=== PATIENT | male | born 1975 | race American Indian/Alaskan Native ===

== ENCOUNTER 2018-01-06 11:24 | Emergency (ER) | payer SELFPAY ==
[2018-01-06] MEDS ORDERED: CATAPRES ONE (12:13)
--- NOTE | 2018-01-06 12:24 | XRay Report ---
CHEST XRAY, 2 VIEWS: History: Shortness of breath. Findings: There is mild cardiomegaly. Pulmonary vessels are within normal limits. The lungs are clear and fully expanded. No infiltrate, pleural effusion or pneumothorax. Normal thoracic cage. IMPRESSION: Cardiomegaly.
[2018-01-06] MEDS ORDERED: CATAPRES PO ONE (12:26)
[2018-01-06 12:34] LABS: Basophils % (Auto) 0.3 % (0.0-1.8); Eosinophils # (Auto) 0.1 K/mm3 (0.0-0.4); Eosinophils % (Auto) 1.7 % (0.0-4.3); Hematocrit 50.5 % (35.5-45.6); Hemoglobin 15.9 gm/dl (11.8-15.2); Lymphocytes # (Auto) 0.6 K/mm3 (1.2-5.4); Lymphocytes % (Auto) 8.6 % (13.4-35.0); Mean Corpuscular HGB Conc 32 % (32-34); Mean Corpuscular Volume 81 fl (84-94); Monocytes # (Auto) 0.8 K/mm3 (0.0-0.8); Monocytes % (Auto) 10.1 % (0.0-7.3); Platelet Count 214 K/mm3 (140-440); Red Blood Count 6.22 M/mm3 (3.65-5.03); Red Cell Distribution Width 15.6 % (13.2-15.2)
[2018-01-06 12:35] LABS: Mean Corpuscular Hemoglobin 26 pg (28-32)
[2018-01-06 13:23] LABS: BUN/Creatinine Ratio 11; Blood Urea Nitrogen 11 mg/dL (9-20); Calcium 8.9 mg/dL (8.4-10.2); Hemolysis Index 6
[2018-01-06] MEDS ORDERED: APRESOLINE IV ONE (14:02)
[2018-01-06] MEDS ORDERED: LASIX IV ONE (14:03)
[2018-01-06] MEDS ORDERED: BABY ASPIRIN PO ONE (14:06)
--- NOTE | 2018-01-06 14:06 | Emergency Department Report ---
ED General Adult HPI - General Chief complaint: Dyspnea/Respdistress Stated complaint: SWOLLEN LEG Time Seen by Provider: 01/06/18 13:55 Source: patient, RN notes reviewed Mode of arrival: Ambulatory Limitations: No Limitations - History of Present Illness Initial comments: This is a 42-year-old male, who is known to this provider previously. He does not have a local primary care doctor. He denies chronic medical conditions. Patient presents to the ER with complaint of bilateral lower extremity swelling , unintentional weight gain, decreased exercise tolerance and sleepiness for the past 2-3 months. He also complains of left-sided chest wall pain that does not radiate to the back, arms or neck. There is no vomiting or diaphoresis. No recent surgeries, no recent trips, no recent hospitalizations. He also endorses on review of systems that he sleeps poorly, snores quite a bit, and gets very sleepy during the day, and feels like each night sleep is insufficient for his daily activities. No recent aspirin use or cocaine use. -: Gradual Location: chest, left, right, lower extremity Radiation: non-radiation Severity scale (0 -10): 5 Quality: aching Consistency: constant (lower extremity swelling is constant.), intermittent ( chest pain is intermittent) Improves with: none Worsens with: none Associated Symptoms: chest pain, shortness of breath - Related Data Allergies Allergy/AdvReac Type Severity Reaction Status Date / Time No Known Allergies Allergy Verified 01/06/18 11:55 ED Review of Systems ROS: Stated complaint: SWOLLEN LEG Other details as noted in HPI Constitutional: malaise. denies: fever Eyes: denies: eye discharge ENT: denies: epistaxis Respiratory: shortness of breath Cardiovascular: chest pain, edema Gastrointestinal: abdominal pain Genitourinary: denies: dysuria Musculoskeletal: arthralgia, myalgia Skin: denies: lesions Neurological: weakness ED Past Medical Hx - Past Medical History Hx Hypertension: Yes - Surgical History Past Surgical History?: No - Social History Smoking Status: Former Smoker Substance Use Type: None ED Physical Exam - General Limitations: No Limitations General appearance: obese - Head Head exam: Present: atraumatic, normocephalic - Eye Eye exam: Present: normal appearance, EOMI. Absent: nystagmus - ENT ENT exam: Present: normal exam, normal orophraynx, mucous membranes moist, normal external ear exam - Neck Neck exam: Present: normal inspection, full ROM - Respiratory Respiratory exam: Present: decreased breath sounds. Absent: respiratory distress - Cardiovascular Cardiovascular Exam: Present: regular rate, normal rhythm, normal heart sounds. Absent: bradycardia, tachycardia, irregular rhythm, systolic murmur, diastolic murmur, rubs, gallop - GI/Abdominal GI/Abdominal exam: Present: soft, normal bowel sounds, other (there is abdominal wall anasarca noted). Absent: distended, tenderness, guarding, rebound, rigid, pulsatile mass - Rectal Rectal exam: Present: deferred - Extremities Exam Extremities exam: Present: normal inspection, full ROM, pedal edema (3+ pitting edema in the bilateral lower extremity), other (2+ pulses noted in the bilateral upper, lower extremities. Compartments soft. No long bony tenderness. The pelvis is stable.). Absent: tenderness, normal capillary refill, calf tenderness - Back Exam Back exam: Present: normal inspection, full ROM. Absent: tenderness, CVA tenderness (R), paraspinal tenderness, vertebral tenderness - Neurological Exam Neurological exam: Present: alert, oriented X3, CN II-XII intact, normal gait, other (Extraocular movements intact. Tongue midline. No facial droop. Facial sensation intact to light touch in the V1, V2, V3 distribution bilaterally. 5 and 5 strength in 4 extremities.. Sensation is intact to light touch in 4 extremities.). Absent: motor sensory deficit - Psychiatric Psychiatric exam: Present: normal affect, normal mood - Skin Skin exam: Present: warm, dry, intact, normal color. Absent: rash ED Course Vital Signs 01/06/18 01/06/18 11:50 13:42 Temperature 98.2 F 98.8 F Pulse Rate 104 H 90 Respiratory 20 22 Rate Blood Pressure 231/148 211/133 O2 Sat by Pulse 93 87 Oximetry ED Medical Decision Making - Lab Data Result diagrams: 01/06/18 12:04 01/06/18 12:04 Vital Signs 01/06/18 01/06/18 11:50 13:42 Temperature 98.2 F 98.8 F Pulse Rate 104 H 90 Respiratory 20 22 Rate Blood Pressure 231/148 211/133 O2 Sat by Pulse 93 87 Oximetry Temp Pulse Resp BP Pulse Ox 98.8 F 90 22 211/133 87 01/06/18 13:42 01/06/18 13:42 01/06/18 13:42 01/06/18 13:42 01/06/18 13:42 Lab Results 01/06/18 01/06/18 Range/Units 12:04 12:04 WBC 7.4 (4.5-11.0) K/mm3 RBC 6.22 H (3.65-5.03) M/mm3 Hgb 15.9 H (11.8-15.2) gm/dl Hct 50.5 H (35.5-45.6) % MCV 81 L (84-94) fl MCH 26 L (28-32) pg MCHC 32 (32-34) % RDW 15.6 H (13.2-15.2) % Plt Count 214 (140-440) K/mm3 Lymph % (Auto) 8.6 L (13.4-35.0) % [place] % (Auto) 10.1 H (0.0-7.3) % Eos % (Auto) 1.7 (0.0-4.3) % Baso % (Auto) 0.3 (0.0-1.8) % Lymph # 0.6 L (1.2-5.4) K/mm3 [place] # 0.8 (0.0-0.8) K/mm3 Eos # 0.1 (0.0-0.4) K/mm3 Baso # 0.0 (0.0-0.1) K/mm3 Seg Neutrophils % 79.3 H (40.0-70.0) % Seg Neutrophils # 5.9 (1.8-7.7) K/mm3 Sodium 141 (137-145) mmol/L Potassium 4.7 (3.6-5.0) mmol/L Chloride 97.9 L (98-107) mmol/L Carbon Dioxide 34 H (22-30) mmol/L Anion Gap 14 mmol/L BUN 11 (9-20) mg/dL Creatinine 1.0 (0.8-1.5) mg/dL Estimated GFR > 60 ml/min BUN/Creatinine Ratio 11 % Glucose 81 (75-100) mg/dL Calcium 8.9 (8.4-10.2) mg/dL Troponin T < 0.010 (0.00-0.029) ng/mL - EKG Data When compared to previous EKG there are: previous EKG unavailable 01/06/18 14:15 Normal sinus, 95 bpm, normal axis, QTC prolonged, poor R progression, low voltage in the anteroseptal leads. Not a STEMI. - Radiology Data Radiology results: report reviewed, image reviewed X-ray of the chest shows cardiomegaly. LIVE [facility] LUCIE CHRISTENSEN : 1975 [id number] 01/06/18 14:55 - Radiology Dept. [facility] by [facility]: [id number] : 1975 Patient Age: 42 BLE VENOUS DUPLEX COMPLETED. VAS LAB PRELIMINARY REPORT; NO EVIDENCE OF DVT/SVT NOTED IN VESSELS/SEGMENTS EXAMINED, BLE. DIFFICULT TO IMAGE BLE 3/4 THIGH SFV'S AND PX CLAF VESSELS DUE TO HABITUS/ SWELLING. PHYSICIANS REPORT TO FOLLOW...(RSK ) Initialized on 01/06/18 14:55 - END OF NOTE - Medical Decision Making Differential diagnosis, including without limited to: Right-sided heart failure , pulmonary hypertension, obstructive sleep apnea, fluid overload, acute coronary syndrome Assessment and plan: 42-year-old morbidly obese male who presents with obvious signs of right-sided heart failure. He most likely has obstructive sleep apnea , which is likely in turn causing pulmonary hypertension and right ventricular dysfunction. A lower extremity DVT studies pending, however he denies pulmonary embolus, DVT risk factors and is low risk by well's criteria. He is saturating at 93-95% on room air. Lasix, hydralazine, aspirin ordered. Hospital physician, Dr. Jones accepts the patient to the medical service for diuresis, blood pressure control, and cardiac risk stratification. Explained to the patient this plan of care and he is amenable to hospital admission. Explained to the patient that he would also likely need to follow up as an outpatient for sleep study. He verbalized understanding to this. Critical care attestation.: If time is entered above; I have spent that time in minutes in the direct care of this critically ill patient, excluding procedure time. ED Disposition Clinical Impression: Diastolic heart failure, Fluid overload, Hypertensive urgency Disposition: OP ADMIT IP TO THIS HOSP Is pt being admited?: Yes Does the pt Need Aspirin: Yes Condition: Good Referrals: PRIMARY CARE, [Primary Care Provider] - 3-5 Days
[2018-01-06 14:21] LABS: INR 0.91 (0.87-1.13)
--- NOTE | 2018-01-06 16:22 | History and Physical Report ---
Medications and Allergies Allergies Allergy/AdvReac Type Severity Reaction Status Date / Time No Known Allergies Allergy Verified 01/06/18 11:55 Exam - Constitutional Vitals: Temp Pulse Resp BP Pulse Ox 98.8 F 80 22 185/104 87 01/06/18 13:42 01/06/18 15:30 01/06/18 13:42 01/06/18 15:30 01/06/18 13:42 Results - Labs CBC & Chem 7: 01/06/18 12:04 01/06/18 12:04 Labs: Abnormal lab results 01/06/18 01/06/18 01/06/18 Range/Units 12:04 12:04 12:04 RBC 6.22 H (3.65-5.03) M/mm3 Hgb 15.9 H (11.8-15.2) gm/dl Hct 50.5 H (35.5-45.6) % MCV 81 L (84-94) fl MCH 26 L (28-32) pg RDW 15.6 H (13.2-15.2) % Lymph % (Auto) 8.6 L (13.4-35.0) % [place] % (Auto) 10.1 H (0.0-7.3) % Lymph # 0.6 L (1.2-5.4) K/mm3 Seg Neutrophils % 79.3 H (40.0-70.0) % Chloride 97.9 L (98-107) mmol/L Carbon Dioxide 34 H (22-30) mmol/L Total Creatine Kinase 173 H (55-170) units/L NT-Pro-B Natriuret Pep 1392 H (0-450) pg/mL
[2018-01-06] MEDS ORDERED: ZESTRIL PO ONE (17:20)
[2018-01-06] MEDS ORDERED: LOPRESSOR PO ONE (17:20)
[2018-01-06] MEDS ORDERED: LOPRESSOR ONE (17:36)
[2018-01-06 21:23] VITALS: BP 156/103
== END 2018-01-06 21:40 | disposition admitted as inpatient to this hospital (09) ==
LOC: ED 11:24
DX: I16.0 Hypertensive urgency (principal); E87.70 Fluid overload, unspecified; I11.0 Hypertensive heart disease with heart failure; I50.30 Unspecified diastolic (congestive) heart failure; E66.01 Morbid (severe) obesity due to excess calories; Z87.891 Personal history of nicotine dependence
CPT/HCPCS: 36415; 71046; 80048; 82550; 83735; 83880; 84484; 85025; 85379; 85610; 93005; 93010; 93970; 96374; 96375; 99284; J0360; J1940

== ENCOUNTER 2018-02-05 12:14 | Inpatient (IN) | payer OTHER ==
--- NOTE | 2018-02-05 14:10 | Emergency Department Report ---
ED Chest Pain HPI - General Chief Complaint: Chest Pain Stated Complaint: SWOLLEN LEG/SOB Time Seen by Provider: 02/05/18 14:09 Source: patient Mode of arrival: Ambulatory Limitations: No Limitations - History of Present Illness Initial Comments: Patient said he has been swelling and gaining weight recently. He also c/o chest pain and bilateral leg swelling. MD Complaint: chest pain -: Gradual Onset: during rest Pain Location: substernal Pain Radiation: none Severity: moderate Severity scale (0 -10): 4 Quality: tightness, heaviness Consistency: constant Improves With: nothing Worsens With: nothing re: denies: nausea, vomting Other Symptoms: denies: fever, syncope Treatments Prior to Arrival: none Aspirin use within the Past 7 Days: (0) No - Related Data On Oral Contraceptives: No Previous Rx's Medication Instructions Recorded Last Taken Type Lisinopril/Hydrochlorothiazide 1 tab PO QDAY #30 tab 01/06/18 02/05/18 Rx [Zestoretic 20-12.5 mg] Metoprolol [Lopressor TAB] 25 mg PO BID #60 tablet 01/06/18 02/05/18 Rx Allergies Allergy/AdvReac Type Severity Reaction Status Date / Time No Known Allergies Allergy Verified 02/05/18 12:34 Heart Score - HEART Score History: Moderately suspicious EKG: Non-specific Age: < 45 Risk factors: 1-2 risk factors Troponin: < normal limit HEART Score: 3 - Critical Actions Critical Actions: 0-3 pts:0.9-1.7%risk of adverse cardiac event.Candidate for discharge ED Review of Systems ROS: Stated complaint: SWOLLEN LEG/SOB Other details as noted in HPI Comment: All other systems reviewed and negative Constitutional: denies: chills, fever Eyes: denies: eye pain, eye discharge ENT: denies: ear pain, throat pain Respiratory: orthopnea, shortness of breath, SOB with exertion, SOB at rest Cardiovascular: chest pain, palpitations, dyspnea on exertion, orthopnea, edema Endocrine: no symptoms reported Gastrointestinal: denies: abdominal pain, nausea, vomiting Genitourinary: denies: urgency, dysuria, frequency Musculoskeletal: denies: back pain, joint swelling Skin: denies: rash, lesions Neurological: denies: headache, weakness, numbness, paresthesias Psychiatric: denies: anxiety, depression Hematological/Lymphatic: denies: easy bleeding, easy bruising ED Past Medical Hx - Past Medical History Hx Hypertension: Yes - Social History Smoking Status: Never Smoker Substance Use Type: None - Medications Home Medications: Home Medications Medication Instructions Recorded Confirmed Last Taken Type Lisinopril/Hydrochlorothiazide 1 tab PO QDAY #30 tab 01/06/18 02/05/18 02/05/18 Rx [Zestoretic 20-12.5 mg] Metoprolol [Lopressor TAB] 25 mg PO BID #60 tablet 01/06/18 02/05/18 02/05/18 Rx ED Physical Exam - General Limitations: No Limitations General appearance: alert, in no apparent distress, obese - Head Head exam: Present: atraumatic, normocephalic, normal inspection - Eye Eye exam: Present: normal appearance, PERRL, EOMI Pupils: Present: normal accommodation - ENT ENT exam: Present: normal exam, normal orophraynx, mucous membranes moist - Neck Neck exam: Present: normal inspection, full ROM. Absent: tenderness - Respiratory Respiratory exam: Present: respiratory distress, rales, rhonchi. Absent: wheezes, stridor - Cardiovascular Cardiovascular Exam: Present: regular rate, normal rhythm, normal heart sounds - GI/Abdominal GI/Abdominal exam: Present: soft, distended, normal bowel sounds. Absent: tenderness, guarding, rebound, rigid - Extremities Exam Extremities exam: Present: full ROM, normal capillary refill, pedal edema, calf tenderness, other (Erythema) - Back Exam Back exam: Present: normal inspection, full ROM. Absent: tenderness - Neurological Exam Neurological exam: Present: alert, oriented X3, CN II-XII intact - Psychiatric Psychiatric exam: Present: normal affect, normal mood - Skin Skin exam: Present: warm, dry, intact, erythema ED Course Vital Signs 02/05/18 02/05/18 02/05/18 12:30 12:34 13:20 Temperature 98.4 F Pulse Rate 82 Respiratory 15 Rate Blood Pressure 212/129 Blood Pressure [Right] O2 Sat by Pulse 91 88 Oximetry 02/05/18 02/05/18 02/05/18 13:30 13:45 14:01 Temperature 98.0 F Pulse Rate 76 96 H 97 H Respiratory 24 23 30 H Rate Blood Pressure 194/127 194/127 221/136 Blood Pressure 178/114 [Right] O2 Sat by Pulse 93 76 L 73 L Oximetry 02/05/18 02/05/18 02/05/18 14:15 14:31 14:45 Temperature Pulse Rate 94 H 79 92 H Respiratory 22 28 H 19 Rate Blood Pressure 216/144 221/133 198/126 Blood Pressure [Right] O2 Sat by Pulse 73 L 85 89 Oximetry 02/05/18 02/05/18 02/05/18 15:01 15:15 15:31 Temperature Pulse Rate 86 94 H 88 Respiratory 32 H 23 16 Rate Blood Pressure 178/121 251/165 208/123 Blood Pressure [Right] O2 Sat by Pulse 75 L 73 L 90 Oximetry - Reevaluation(s) Reevaluation #1: 02/05/18 15:59 I discussed patient care with the hospitalist rn clinical documentation Dr Estes. He will admit patient to the hospital for further evaluation and mangement. DAVID score - David Score Age > 65: (0) No Aspirin use within the Past 7 Days: (0) No 3 or more CAD Risk Factors: (0) No 2 or more Angina events in past 24 hrs: (0) No Known CAD with more than 50% Stenosis: (0) No Elevated Cardiac Markers: (0) No ST Deviation Greater than 0.5mm: (0) No DAVID Score: 0 ED Medical Decision Making - Lab Data Result diagrams: 02/05/18 14:41 02/05/18 14:41 - EKG Data -: EKG Interpreted by Me EKG shows normal: sinus rhythm Rate: normal (83) - EKG Data When compared to previous EKG there are: previous EKG unavailable Interpretation: normal EKG 02/05/18 15:13 No STEMI. - Radiology Data Radiology results: report reviewed, image reviewed - Medical Decision Making Chest Pain. CHF. Critical Care Time: Yes Critical care time in (mins) excluding proc time.: 45 Critical care attestation.: If time is entered above; I have spent that time in minutes in the direct care of this critically ill patient, excluding procedure time. ED Disposition Clinical Impression: Obesities, morbid, Hypertensive crisis, Cellulitis of both lower extremities Chest pain Qualifiers: Chest pain type: unspecified Qualified Code(s): R07.9 - Chest pain, unspecified CHF (congestive heart failure) Qualifiers: Heart failure type: unspecified Heart failure chronicity: unspecified Qualified Code(s): I50.9 - Heart failure, unspecified Hypertensive CHF Qualifiers: Heart failure type: unspecified Qualified Code(s): I11.0 - Hypertensive heart disease with heart failure Disposition: OP ADMIT IP TO THIS HOSP Is pt being admited?: Yes Does the pt Need Aspirin: Yes Condition: Fair Instructions: Chest Pain (ED) Referrals: PRIMARY CARE, [Primary Care Provider] - 3-5 Days Time of Disposition: 16:00
[2018-02-05 15:02] LABS: Basophils % (Auto) 0.5 % (0.0-1.8); Eosinophils # (Auto) 0.6 K/mm3 (0.0-0.4); Eosinophils % (Auto) 6.2 % (0.0-4.3); Lymphocytes # (Auto) 0.7 K/mm3 (1.2-5.4); Lymphocytes % (Auto) 7.4 % (13.4-35.0); Mean Corpuscular HGB Conc 31 % (32-34); Mean Corpuscular Volume 80 fl (84-94); Monocytes # (Auto) 0.9 K/mm3 (0.0-0.8); Monocytes % (Auto) 10.2 % (0.0-7.3); Platelet Count 211 K/mm3 (140-440); Red Blood Count 6.45 M/mm3 (3.65-5.03); Red Cell Distribution Width 15.9 % (13.2-15.2)
[2018-02-05 15:03] LABS: Hematocrit 51.9 % (35.5-45.6); Hemoglobin 16.1 gm/dl (11.8-15.2)
[2018-02-05 15:04] LABS: Mean Corpuscular Hemoglobin 25 pg (28-32)
[2018-02-05 15:19] LABS: Partial Thromboplastin Time 29.4 Sec. (24.2-36.6)
[2018-02-05] MEDS ORDERED: APRESOLINE IV ONE (15:19)
[2018-02-05 15:24] LABS: Alanine Aminotransferase 25 units/L (7-56); Albumin 3.5 g/dL (3.9-5); BUN/Creatinine Ratio 12; Blood Urea Nitrogen 11 mg/dL (9-20); Hemolysis Index 12
[2018-02-05 15:53] LABS: INR 1.02 (0.87-1.13)
[2018-02-05] MEDS ORDERED: LASIX 60 MG in NACL 0.9% 50 ML IV ONE (16:19)
[2018-02-05 16:58] LABS: Lipase 26 units/L (13-60)
[2018-02-05] MEDS ORDERED: VANCOMYCIN/NS 1 GM/250 ML 1 GM/250 ML BAG IV SCH (17:00)
--- NOTE | 2018-02-05 17:21 | XRay Report ---
FINAL REPORT EXAM: XR CHEST 1V AP HISTORY: Shortness of breath, chest pain TECHNIQUE: AP portable view of the chest PRIORS: None. FINDINGS: Lines, tubes, and devices: N/A Lungs and pleura: Trachea is normal in position. Perihilar vascular congestion is noted suggesting CHF. Probable small left pleural effusion is seen. There is overlying soft tissue haze in the left base. Cardiomediastinal silhouette: The heart is mildly enlarged. Other: Bony structures are intact. IMPRESSION: Cardiomegaly with perihilar vascular congestion suggesting volume overload or CHF. There is likely a small left effusion.
[2018-02-05 17:54] LABS: Amphetamine Screen,Urine PRESUMPTIVE NEGATIVE; Benzodiazepines Screen,Urine PRESUMPTIVE NEGATIVE; Bilirubin,Urine NEG (Negative); Blood,Urine NEG (Negative); Cannabinoid Screen,Urine PRESUMPTIVE NEGATIVE; Cocaine Screen,Urine PRESUMPTIVE NEGATIVE; Color,Urine Yellow (Yellow); Methadone Screen,Urine PRESUMPTIVE NEGATIVE; Mucus,Urine FEW /HPF; Opiate Screen,Urine PRESUMPTIVE NEGATIVE; Protein,Urine <15 mg/dL mg/dL (Negative)
[2018-02-05] MEDS ORDERED: ZOSYN/NS 4.5GM/100ML 4.5 GM/100 ML VIAL IV SCH (18:00)
[2018-02-05] MEDS ORDERED: VANCOMYCIN 2,000 MG in NACL 0.9% 500 ML 500 ML IV ONE (18:00)
[2018-02-05] MEDS ORDERED: TYLENOL PO PRN (20:41)
[2018-02-05] MEDS ORDERED: NORCO 5/325 PO PRN (20:41)
[2018-02-05] MEDS ORDERED: MORPHINE IV PRN (20:41)
[2018-02-05] MEDS ORDERED: ZOFRAN IV PRN (20:41)
[2018-02-05] MEDS ORDERED: SODIUM CHLORIDE FLUSH SYRINGE 10 ML IV PRN (20:41)
--- NOTE | 2018-02-05 20:41 | History and Physical Report ---
History of Present Illness Date of examination: 02/05/18 Date of admission: 02/05/18 Chief complaint: CC Increasing SOB and weight gain -1 month History of present illness: History of Present Illness: 42 y/o Black male with history of HTn has been getting progressively SOB and Weight gain for 1 month Also non specific Chest pain.Orthopnea present.patient has class IV NYHA symptoms.No fever or chills.Exacerbated by minimal exercise and relieved by rest. Initial Comments: Past Medical History Hx Hypertension: Yes Social History Smoking Status: Never Smoker Substance Use Type: None Medications Home Medications: Home Medications Medication Instructions Recorded Confirmed Last Taken Type Lisinopril/Hydrochlorothiazide 1 tab PO QDAY #30 tab 01/06/18 02/05/18 02/05/18 Rx [Zestoretic 20-12.5 mg] Metoprolol [Lopressor TAB] 25 mg PO BID #60 tablet 01/06/18 02/05/18 02/05/18 Rx Review of Systems ROS: Stated complaint: SWOLLEN LEG/SOB Other details as noted in HPI Comment: All other systems reviewed and negative Constitutional: denies: chills, fever Eyes: denies: eye pain, eye discharge ENT: denies: ear pain, throat pain Respiratory: orthopnea, shortness of breath, SOB with exertion, SOB at rest Cardiovascular: chest pain, palpitations, dyspnea on exertion, orthopnea, edema Endocrine: no symptoms reported Gastrointestinal: denies: abdominal pain, nausea, vomiting Genitourinary: denies: urgency, dysuria, frequency Musculoskeletal: denies: back pain, joint swelling Skin: denies: rash, lesions Neurological: denies: headache, weakness, numbness, paresthesias Psychiatric: denies: anxiety, depression Hematological/Lymphatic: denies: easy bleeding, easy bruising Medications and Allergies Allergies Allergy/AdvReac Type Severity Reaction Status Date / Time No Known Allergies Allergy Verified 02/05/18 12:34 Home Medications Medication Instructions Recorded Confirmed Last Taken Type Lisinopril/Hydrochlorothiazide 1 tab PO QDAY #30 tab 01/06/18 02/05/18 02/05/18 Rx [Zestoretic 20-12.5 mg] Metoprolol [Lopressor TAB] 25 mg PO BID #60 tablet 01/06/18 02/05/18 02/05/18 Rx Active Meds: Active Medications Piperacillin Sod/Tazobactam Sod (Zosyn/Ns 4.5gm/100ml) 4.5 gm in 100 mls @ 200 mls/hr IV ONCE LULI Last Infusion: 02/05/18 18:55 Dose: Infused Exam - Constitutional Vitals: Temp Pulse Resp BP Pulse Ox 98.0 F 85 19 182/116 92 02/05/18 16:30 02/05/18 18:30 02/05/18 18:30 02/05/18 18:30 02/05/18 18:30 General appearance: Present: mild distress, well-nourished - EENT Eyes: Present: PERRL ENT: hearing intact, clear oral mucosa - Neck Neck: Present: supple, normal ROM - Respiratory Respiratory effort: normal Respiratory: bilateral: rales, rhonchi - Cardiovascular Heart rate: 98 Rhythm: regular Heart Sounds: Present: S1 & S2. Absent: rub, click - Extremities Extremities: pulses symmetrical, No edema, abnormal Extremity abnormal: edema (3 plus) Peripheral Pulses: within normal limits - Abdominal General gastrointestinal: Present: soft, non-tender, non-distended, normal bowel sounds Male genitourinary: Present: normal - Rectal Rectal Exam: deferred - Integumentary Integumentary: Present: clear, warm, dry - Musculoskeletal Musculoskeletal: gait normal, strength equal bilaterally - Psychiatric Psychiatric: appropriate mood/affect, intact judgment & insight - Neurologic Neurologic: CNII-XII intact, moves all extremities - Allied Health Allied health notes reviewed: nursing, case management Results - Labs CBC & Chem 7: 02/06/18 04:58 02/06/18 04:58 Labs: Laboratory Last Values WBC 9.2 K/mm3 (4.5-11.0) 02/05/18 14:41 RBC 6.45 M/mm3 (3.65-5.03) H 02/05/18 14:41 Hgb 16.1 gm/dl (11.8-15.2) H 02/05/18 14:41 Hct 51.9 % (35.5-45.6) H 02/05/18 14:41 MCV 80 fl (84-94) L 02/05/18 14:41 MCH 25 pg (28-32) L 02/05/18 14:41 MCHC 31 % (32-34) L 02/05/18 14:41 RDW 15.9 % (13.2-15.2) H 02/05/18 14:41 Plt Count 211 K/mm3 (140-440) 02/05/18 14:41 Lymph % (Auto) 7.4 % (13.4-35.0) L 02/05/18 14:41 [place] % (Auto) 10.2 % (0.0-7.3) H 02/05/18 14:41 Eos % (Auto) 6.2 % (0.0-4.3) H 02/05/18 14:41 Baso % (Auto) 0.5 % (0.0-1.8) 02/05/18 14:41 Lymph # 0.7 K/mm3 (1.2-5.4) L 02/05/18 14:41 [place] # 0.9 K/mm3 (0.0-0.8) H 02/05/18 14:41 Eos # 0.6 K/mm3 (0.0-0.4) H 02/05/18 14:41 Baso # 0.0 K/mm3 (0.0-0.1) 02/05/18 14:41 Seg Neutrophils % 75.7 % (40.0-70.0) H 02/05/18 14:41 Seg Neutrophils # 7.0 K/mm3 (1.8-7.7) 02/05/18 14:41 PT 13.9 Sec. (12.2-14.9) 02/05/18 14:41 INR 1.02 (0.87-1.13) 02/05/18 14:41 APTT 29.4 Sec. (24.2-36.6) 02/05/18 14:41 D-Dimer 883.26 ng/mlDDU (0-234) H 02/05/18 14:41 Sodium 142 mmol/L (137-145) 02/05/18 14:41 Potassium 4.6 mmol/L (3.6-5.0) 02/05/18 14:41 Chloride 97.6 mmol/L (98-107) L 02/05/18 14:41 Carbon Dioxide 37 mmol/L (22-30) H 02/05/18 14:41 Anion Gap 12 mmol/L 02/05/18 14:41 BUN 11 mg/dL (9-20) 02/05/18 14:41 Creatinine 0.9 mg/dL (0.8-1.5) 02/05/18 14:41 Estimated GFR > 60 ml/min 02/05/18 14:41 BUN/Creatinine Ratio 12 % 02/05/18 14:41 Glucose 86 mg/dL (75-100) 02/05/18 14:41 Calcium 9.0 mg/dL (8.4-10.2) 02/05/18 14:41 Total Bilirubin 0.60 mg/dL (0.1-1.2) 02/05/18 14:41 AST 27 units/L (5-40) 02/05/18 14:41 ALT 25 units/L (7-56) 02/05/18 14:41 Alkaline Phosphatase 107 units/L (35-129) 02/05/18 14:41 Troponin T < 0.010 ng/mL (0.00-0.029) 02/05/18 17:59 NT-Pro-B Natriuret Pep 1046 pg/mL (0-450) H 02/05/18 14:41 Total Protein 7.0 g/dL (6.3-8.2) 02/05/18 14:41 Albumin 3.5 g/dL (3.9-5) L 02/05/18 14:41 Albumin/Globulin Ratio 1.0 % 02/05/18 14:41 Lipase 26 units/L (13-60) 02/05/18 14:41 Urine Color Yellow (Yellow) 02/05/18 17:32 Urine Turbidity Clear (Clear) 02/05/18 17:32 Urine pH 6.0 (5.0-7.0) 02/05/18 17:32 Ur Specific [place] 1.011 (1.003-1.030) 02/05/18 17:32 Urine Protein <15 mg/dl mg/dL (Negative) 02/05/18 17:32 Urine Glucose (UA) Neg mg/dL (Negative) 02/05/18 17:32 Urine Ketones Neg mg/dL (Negative) 02/05/18 17:32 Urine Blood Neg (Negative) 02/05/18 17:32 Urine Nitrite Neg (Negative) 02/05/18 17:32 Urine Bilirubin Neg (Negative) 02/05/18 17:32 Urine Urobilinogen 2.0 mg/dL (<2.0) 02/05/18 17:32 Ur Leukocyte Esterase Neg (Negative) 02/05/18 17:32 Urine WBC (Auto) 1.0 /HPF (0.0-6.0) 02/05/18 17:32 Urine RBC (Auto) 2.0 /HPF (0.0-6.0) 02/05/18 17:32 Urine Mucus Few /HPF 02/05/18 17:32 Urine Opiates Screen Presumptive negative 02/05/18 17:32 Urine Methadone Screen Presumptive negative 02/05/18 17:32 Ur Barbiturates Screen Presumptive negative 02/05/18 17:32 Ur Phencyclidine Scrn Presumptive negative 02/05/18 17:32 Ur Amphetamines Screen Presumptive negative 02/05/18 17:32 U Benzodiazepines Scrn Presumptive negative 02/05/18 17:32 Urine Cocaine Screen Presumptive negative 02/05/18 17:32 U Marijuana (THC) Screen Presumptive negative 02/05/18 17:32 Drugs of Abuse Note Disclamer 02/05/18 17:32 - Imaging and Cardiology EKG: report reviewed (NSR 80/minNo acute ST/T wave changes) Imaging and Cardiology: CXR CHFPul vascular congestion Assessment and Plan Advance Directives: Yes (Full code) VTE prophylaxis?: Chemical Plan of care discussed with patient/family: Yes - Patient Problems (1) Acute exacerbation of CHF (congestive heart failure) Current Visit: Yes Status: Acute Qualifiers: Heart failure type: combined systolic and diastolic Qualified Code(s): I50.43 - Acute on chronic combined systolic (congestive) and diastolic ( congestive) heart failure Plan to address problem: ECHO for EF/Valve function Lasix 40 q12 Cardiology consult (2) HTN (hypertension) Current Visit: Yes Status: Chronic Qualifiers: Hypertension type: essential hypertension Qualified Code(s): I10 - Essential (primary) hypertension Plan to address problem: Initiated on Losartan and Coreg for now (3) Chest pain Current Visit: Yes Status: Acute Qualifiers: Chest pain type: unspecified Qualified Code(s): R07.9 - Chest pain, unspecified Plan to address problem: Patient may not fit the table Will defer to cardiolgy (4) Obesities, morbid Current Visit: Yes Status: Chronic Plan to address problem: COUNSELLED (5) DVT prophylaxis Current Visit: Yes Status: Acute Plan to address problem: on Lovenox
[2018-02-05] MEDS: K-DUR PO SCH (21:58)
[2018-02-05] MEDS: LOVENOX SUB-Q SCH (21:58)
[2018-02-05] MEDS: PEPCID PO SCH (21:59)
[2018-02-05] MEDS: SODIUM CHLORIDE FLUSH SYRINGE 10 ML IV SCH (21:59)
[2018-02-06] MEDS ORDERED: APRESOLINE IV PRN (00:34)
[2018-02-06 06:08] LABS: Basophils % (Auto) 0.3 % (0.0-1.8); Eosinophils # (Auto) 0.3 K/mm3 (0.0-0.4); Lymphocytes # (Auto) 0.5 K/mm3 (1.2-5.4); Lymphocytes % (Auto) 5.4 % (13.4-35.0); Mean Corpuscular HGB Conc 31 % (32-34); Mean Corpuscular Volume 80 fl (84-94); Monocytes # (Auto) 0.8 K/mm3 (0.0-0.8); Platelet Count 238 K/mm3 (140-440); Red Blood Count 6.67 M/mm3 (3.65-5.03); Red Cell Distribution Width 15.7 % (13.2-15.2)
[2018-02-06] MEDS: LASIX IV SCH ×2 (06:08→19:00)
[2018-02-06 06:19] LABS: Alanine Aminotransferase 23 units/L (7-56); Albumin 3.3 g/dL (3.9-5); BUN/Creatinine Ratio 12; Blood Urea Nitrogen 11 mg/dL (9-20); Calcium 8.8 mg/dL (8.4-10.2); Hemolysis Index 19
[2018-02-06 06:25] LABS: Hematocrit 53.5 % (35.5-45.6); Hemoglobin 16.4 gm/dl (11.8-15.2); Mean Corpuscular Hemoglobin 25 pg (28-32)
--- NOTE | 2018-02-06 11:45 | Consultation ---
History of Present Illness Consult date: 02/06/18 Requesting physician: BURT LAMBERT Consult reason: congestive heart failure History of present illness: The patient claims that about 2 days ago, he started experiencing sharp substernal chest pain. He presented to the ER where he was evaluated and discharged home. However, he developed progressive fatigue, bilateral leg edema and exertional dyspnea. He experiences dyspnea with minimal exertion as well as orthopnea. He denies chest pain. CXR at presentation showed evidence of heart failure. His blood pressure was severely elevated at presentation. It has since improved. Past History Past Medical History: hypertension Past Surgical History: No surgical history Social history: denies: smoking, alcohol abuse Family history: denies: no significant family history Medications and Allergies Allergies Allergy/AdvReac Type Severity Reaction Status Date / Time No Known Allergies Allergy Verified 02/05/18 12:34 Home Medications Medication Instructions Recorded Confirmed Last Taken Type Lisinopril/Hydrochlorothiazide 1 tab PO QDAY #30 tab 01/06/18 02/05/18 02/05/18 Rx [Zestoretic 20-12.5 mg] Metoprolol [Lopressor TAB] 25 mg PO BID #60 tablet 01/06/18 02/05/18 02/05/18 Rx Active Meds: Active Medications Acetaminophen (Tylenol) 650 mg PO Q4H PRN PRN Reason: Pain MILD(1-3)/Fever >100.5/GARCIA Acetaminophen/Hydrocodone Bitart ([place] 5/325) 2 each PO Q6H PRN PRN Reason: Pain, Moderate (4-6) Carvedilol (Coreg) 12.5 mg PO BID [facility] Enoxaparin Sodium (Lovenox) 40 mg SUB-Q QDAY [facility] Last Admin: 02/05/18 21:58 Dose: 40 mg Famotidine (Pepcid) 20 mg PO BID [facility] Last Admin: 02/05/18 21:59 Dose: 20 mg Furosemide (Lasix) 40 mg IV 0600,1800 [facility] Last Admin: 02/06/18 06:08 Dose: 40 mg Hydralazine HCl (Apresoline) 5 mg IV Q6HR PRN PRN Reason: Hypertension Losartan Potassium (Cozaar) 100 mg PO QDAY [facility] Morphine Sulfate (Morphine) 4 mg IV Q4H PRN PRN Reason: Pain, Moderate (4-6) Ondansetron HCl (Zofran) 4 mg IV Q8H PRN PRN Reason: Nausea And Vomiting Potassium Chloride (K-Dur) 20 meq PO Q12H [facility] Last Admin: 02/05/18 21:58 Dose: 20 meq Sodium Chloride (Sodium Chloride Flush Syringe 10 Ml) 10 ml IV BID [facility] Last Admin: 02/05/18 21:59 Dose: 10 ml Sodium Chloride (Sodium Chloride Flush Syringe 10 Ml) 10 ml IV PRN PRN PRN Reason: LINE FLUSH Review of Systems Constitutional: fatigue, no fever, no chills Ears, nose, mouth and throat: no ear pain, no ear discharge, no sore throat Cardiovascular: orthopnea, shortness of breath, dyspnea on exertion, no chest pain Respiratory: shortness of breath, dyspnea on exertion, no cough, no hemoptysis Genitourinary Male: no dysuria, no urinary frequency Rectal: no pain, no bleeding Musculoskeletal: no neck stiffness, no neck pain, no myalgias Integumentary: no rash, no pruritis Neurological: no weakness, no parathesias, no headaches Endocrine: no cold intolerance, no heat intolerance Hematologic/Lymphatic: no easy bruising, no easy bleeding Allergic/Immunologic: no urticaria, no wheezing Physical Examination Vital Signs Last Vital Signs Temp 98.1 F 02/06/18 07:41 Pulse 97 H 02/06/18 07:41 Resp 20 02/06/18 07:41 BP 146/76 02/06/18 07:41 Pulse Ox 97 02/06/18 10:44 General appearance: no acute distress HEENT: Positive: EOMI, Normocephaly, Mucus Membranes Moist Neck: Positive: neck supple, trachea midline, JVD/HJR Cardiac: Positive: Reg Rate and Rhythm, S1/S2 Lungs: Positive: clear to auscultation Neuro: Positive: Grossly Intact Abdomen: Positive: Soft, Active Bowel Sounds. Negative: Tender Skin: Positive: Clear. Negative: Rash Musculoskeletal: Normal Range of Motion Extremities: Present: edema (nonpitting bilateral leg edema.) Results 02/06/18 04:58 02/06/18 04:58 Cardiac Enzymes 02/05/18 02/06/18 Range/Units 14:41 04:58 AST 27 23 (5-40) units/L Coagulation 02/05/18 Range/Units 14:41 PT 13.9 (12.2-14.9) Sec. INR 1.02 (0.87-1.13) APTT 29.4 (24.2-36.6) Sec. CBC 18 02/06/18 Range/Units 14:41 04:58 WBC 9.2 9.7 (4.5-11.0) K/mm3 RBC 6.45 H 6.67 H (3.65-5.03) M/mm3 Hgb 16.1 H 16.4 H (11.8-15.2) gm/dl Hct 51.9 H 53.5 H (35.5-45.6) % Plt Count 211 238 (140-440) K/mm3 Lymph # 0.7 L 0.5 L (1.2-5.4) K/mm3 [place] # 0.9 H 0.8 (0.0-0.8) K/mm3 Eos # 0.6 H 0.3 (0.0-0.4) K/mm3 Baso # 0.0 0.0 (0.0-0.1) K/mm3 Comprehensive Metabolic Panel 02/05/18 02/06/18 Range/Units 14:41 04:58 Sodium 142 142 (137-145) mmol/L Potassium 4.6 4.2 (3.6-5.0) mmol/L Chloride 97.6 L 96.9 L (98-107) mmol/L Carbon Dioxide 37 H 36 H (22-30) mmol/L BUN 11 11 (9-20) mg/dL Creatinine 0.9 0.9 (0.8-1.5) mg/dL Glucose 86 98 (75-100) mg/dL Calcium 9.0 8.8 (8.4-10.2) mg/dL AST 27 23 (5-40) units/L ALT 25 23 (7-56) units/L Alkaline Phosphatase 107 108 (35-129) units/L Total Protein 7.0 7.1 (6.3-8.2) g/dL Albumin 3.5 L 3.3 L (3.9-5) g/dL - Imaging and Cardiology EKG: image reviewed EKG interpretations - Telemetry EKG Rhythm: Sinus Rhythm - EKG Sinus rhythms and dysrhythmias: sinus rhythm AV and intraventricular conduction: right bundle branch block Assessment and Plan I agree with his current regimen. Optimize antihypertensive regimen. Obtain echocardiogram. He will probably benefit from a sleep study as an outpatient. - Patient Problems (1) Acute heart failure Current Visit: Yes Status: Acute (2) Hypertensive emergency Current Visit: Yes Status: Acute (3) Morbid obesity Current Visit: Yes Status: Acute (4) Suspected sleep apnea Current Visit: Yes Status: Acute
--- NOTE | 2018-02-06 13:37 | Progress Note ---
Assessment and Plan Assessment and plan: Acute CHF. Admitted to Telemetry. Continue Lasix, CoregRosalinezaar Hypertensive urgency Monitor BP. On Femi Mccurdy Morbid obesity. I discussed diet and exercise to lose weight. Full code status History Interval history: chest pain shortness of breath leg edema Hospitalist Physical - Physical exam Narrative exam: GEN:Not in acute distress, morbidly obese HEENT: Normocephalic, atraumatic, Neck: supple, No JVD Lungs:Clear to auscultation bilaterally, no crackles, no wheeze Heart:S1 and S2 reg, no murmurs, rubs or gallop Abd:soft, non-tender, non-distended, Normal bowel sounds Ext: Bilat lower ext edema, no clubbing or cyanosis Neuro:AAO x 3, No focal neurological signs - Constitutional Vitals: Temp Pulse Resp BP Pulse Ox 98.1 F 97 H 20 153/98 97 02/06/18 07:41 02/06/18 07:41 02/06/18 07:41 02/06/18 12:09 02/06/18 10:44 General appearance: Present: no acute distress Results - Labs CBC & Chem 7: 02/06/18 04:58 02/06/18 04:58 Labs: Laboratory Last Values WBC 9.7 K/mm3 (4.5-11.0) 02/06/18 04:58 RBC 6.67 M/mm3 (3.65-5.03) H 02/06/18 04:58 Hgb 16.4 gm/dl (11.8-15.2) H 02/06/18 04:58 Hct 53.5 % (35.5-45.6) H 02/06/18 04:58 MCV 80 fl (84-94) L 02/06/18 04:58 MCH 25 pg (28-32) L 02/06/18 04:58 MCHC 31 % (32-34) L 02/06/18 04:58 RDW 15.7 % (13.2-15.2) H 02/06/18 04:58 Plt Count 238 K/mm3 (140-440) 02/06/18 04:58 Lymph % (Auto) 5.4 % (13.4-35.0) L 02/06/18 04:58 [place] % (Auto) 8.0 % (0.0-7.3) H 02/06/18 04:58 Eos % (Auto) 3.0 % (0.0-4.3) 02/06/18 04:58 Baso % (Auto) 0.3 % (0.0-1.8) 02/06/18 04:58 Lymph # 0.5 K/mm3 (1.2-5.4) L 02/06/18 04:58 [place] # 0.8 K/mm3 (0.0-0.8) 02/06/18 04:58 Eos # 0.3 K/mm3 (0.0-0.4) 02/06/18 04:58 Baso # 0.0 K/mm3 (0.0-0.1) 02/06/18 04:58 Seg Neutrophils % 83.3 % (40.0-70.0) H 02/06/18 04:58 Seg Neutrophils # 8.1 K/mm3 (1.8-7.7) H 02/06/18 04:58 PT 13.9 Sec. (12.2-14.9) 02/05/18 14:41 INR 1.02 (0.87-1.13) 02/05/18 14:41 APTT 29.4 Sec. (24.2-36.6) 02/05/18 14:41 D-Dimer 883.26 ng/mlDDU (0-234) H 02/05/18 14:41 Sodium 142 mmol/L (137-145) 02/06/18 04:58 Potassium 4.2 mmol/L (3.6-5.0) 02/06/18 04:58 Chloride 96.9 mmol/L (98-107) L 02/06/18 04:58 Carbon Dioxide 36 mmol/L (22-30) H 02/06/18 04:58 Anion Gap 13 mmol/L 02/06/18 04:58 BUN 11 mg/dL (9-20) 02/06/18 04:58 Creatinine 0.9 mg/dL (0.8-1.5) 02/06/18 04:58 Estimated GFR > 60 ml/min 02/06/18 04:58 BUN/Creatinine Ratio 12 % 02/06/18 04:58 Glucose 98 mg/dL (75-100) 02/06/18 04:58 Hemoglobin A1c 6.0 % (4-6) 02/05/18 Unknown Calcium 8.8 mg/dL (8.4-10.2) 02/06/18 04:58 Total Bilirubin 0.60 mg/dL (0.1-1.2) 02/06/18 04:58 AST 23 units/L (5-40) 02/06/18 04:58 ALT 23 units/L (7-56) 02/06/18 04:58 Alkaline Phosphatase 108 units/L (35-129) 02/06/18 04:58 Troponin T < 0.010 ng/mL (0.00-0.029) 02/06/18 04:58 NT-Pro-B Natriuret Pep 1046 pg/mL (0-450) H 02/05/18 14:41 Total Protein 7.1 g/dL (6.3-8.2) 02/06/18 04:58 Albumin 3.3 g/dL (3.9-5) L 02/06/18 04:58 Albumin/Globulin Ratio 0.9 % 02/06/18 04:58 Lipase 26 units/L (13-60) 02/05/18 14:41 Urine Color Yellow (Yellow) 02/05/18 17:32 Urine Turbidity Clear (Clear) 02/05/18 17:32 Urine pH 6.0 (5.0-7.0) 02/05/18 17:32 Ur Specific [place] 1.011 (1.003-1.030) 02/05/18 17:32 Urine Protein <15 mg/dl mg/dL (Negative) 02/05/18 17:32 Urine Glucose (UA) Neg mg/dL (Negative) 02/05/18 17:32 Urine Ketones Neg mg/dL (Negative) 02/05/18 17:32 Urine Blood Neg (Negative) 02/05/18 17:32 Urine Nitrite Neg (Negative) 02/05/18 17:32 Urine Bilirubin Neg (Negative) 02/05/18 17:32 Urine Urobilinogen 2.0 mg/dL (<2.0) 02/05/18 17:32 Ur Leukocyte Esterase Neg (Negative) 02/05/18 17:32 Urine WBC (Auto) 1.0 /HPF (0.0-6.0) 02/05/18 17:32 Urine RBC (Auto) 2.0 /HPF (0.0-6.0) 02/05/18 17:32 Urine Mucus Few /HPF 02/05/18 17:32 Urine Opiates Screen Presumptive negative 02/05/18 17:32 Urine Methadone Screen Presumptive negative 02/05/18 17:32 Ur Barbiturates Screen Presumptive negative 02/05/18 17:32 Ur Phencyclidine Scrn Presumptive negative 02/05/18 17:32 Ur Amphetamines Screen Presumptive negative 02/05/18 17:32 U Benzodiazepines Scrn Presumptive negative 02/05/18 17:32 Urine Cocaine Screen Presumptive negative 02/05/18 17:32 U Marijuana (THC) Screen Presumptive negative 02/05/18 17:32 Drugs of Abuse Note Disclamer 02/05/18 17:32
[2018-02-06] MEDS: LOVENOX SUB-Q SCH (15:08)
[2018-02-06] MEDS: K-DUR PO SCH (15:08)
[2018-02-06] MEDS: PEPCID PO SCH (15:09)
[2018-02-06] MEDS: SODIUM CHLORIDE FLUSH SYRINGE 10 ML IV SCH (15:10)
[2018-02-06] MEDS: COREG PO SCH (15:11)
[2018-02-06] MEDS: COZAAR PO SCH (15:19)
[2018-02-07] MEDS: ROBITUSSIN AC PO PRN ×2 (00:39→12:09)
[2018-02-07] MEDS: PEPCID PO SCH ×3 (00:42→23:46)
[2018-02-07] MEDS: COREG PO SCH ×2 (00:43→12:05)
[2018-02-07] MEDS: SODIUM CHLORIDE FLUSH SYRINGE 10 ML IV SCH ×3 (00:43→21:33)
[2018-02-07] MEDS: K-DUR PO SCH ×3 (00:43→21:30)
[2018-02-07] MEDS: LASIX IV SCH ×2 (06:00→18:10)
[2018-02-07] MEDS: LOVENOX SUB-Q SCH (12:05)
[2018-02-07] MEDS: COZAAR PO SCH (12:05)
--- NOTE | 2018-02-07 12:17 | Progress Note ---
Assessment and Plan Continue present cardiac regimen with possible d/c home in AM. The patient has been seen in conjunction with Dr. Iglesias who agrees with the assessment and plan of care. - Patient Problems (1) (HFpEF) heart failure with preserved ejection fraction Current Visit: Yes Status: Acute (2) Hypertensive emergency Current Visit: Yes Status: Acute (3) Morbid obesity Current Visit: Yes Status: Chronic (4) Suspected sleep apnea Current Visit: Yes Status: Chronic Subjective Date of service: 02/07/18 Principal diagnosis: HF Interval history: pt resting in bed, still with c/o SOB and BLE edema, although symptoms are improving. Objective Last Vital Signs Temp 98.4 F 02/07/18 11:58 Pulse 86 02/07/18 12:05 Resp 20 02/07/18 11:58 BP 160/72 02/07/18 12:05 Pulse Ox 94 02/07/18 11:58 - Physical Examination General: No Apparent Distress HEENT: Positive: EOMI, Normocephaly, Mucus Membranes Moist Neck: Positive: neck supple, trachea midline, JVD/HJR Cardiac: Positive: Reg Rate and Rhythm, S1/S2 Lungs: Positive: Decreased Breath Sounds Neuro: Positive: Grossly Intact Abdomen: Positive: Soft, Active Bowel Sounds. Negative: Tender Skin: Positive: Clear. Negative: Rash Musculoskeletal: Normal Range of Motion Extremities: Present: edema (nonpitting bilateral leg edema.) - Imaging and Cardiology EKG: image reviewed Echo: report reviewed - Telemetry EKG Rhythm: Sinus Rhythm - EKG Sinus rhythms and dysrhythmias: sinus rhythm AV and intraventricular conduction: right bundle branch block
--- NOTE | 2018-02-07 16:34 | Progress Note ---
Assessment and Plan Assessment and plan: Acute CHF. Admitted to Telemetry. Continue Lasix, Coreg, Cozaar Hypertensive urgency Monitor BP. BP uncontrolled. Add Hydralazine to Coreg and, Femi Morbid obesity. I discussed diet and exercise to lose weight. Full code status History Interval history: Chest pain shortness of breath Leg edema Hospitalist Physical - Physical exam Narrative exam: GEN:Not in acute distress, morbidly obese HEENT: Normocephalic, atraumatic, Neck: supple, No JVD Lungs:Clear to auscultation bilaterally, no crackles, no wheeze Heart:S1 and S2 reg, no murmurs, rubs or gallop Abd:soft, non-tender, non-distended, Normal bowel sounds Ext: Bilat lower ext edema, no clubbing or cyanosis Neuro:AAO x 3, No focal neurological signs - Constitutional Vitals: Temp Pulse Resp BP Pulse Ox 98.4 F 86 20 160/72 94 02/07/18 11:58 02/07/18 12:05 02/07/18 11:58 02/07/18 12:05 02/07/18 11:58 General appearance: Present: no acute distress Results - Labs CBC & Chem 7: 02/06/18 04:58 02/06/18 04:58 Labs: Laboratory Last Values WBC 9.7 K/mm3 (4.5-11.0) 02/06/18 04:58 RBC 6.67 M/mm3 (3.65-5.03) H 02/06/18 04:58 Hgb 16.4 gm/dl (11.8-15.2) H 02/06/18 04:58 Hct 53.5 % (35.5-45.6) H 02/06/18 04:58 MCV 80 fl (84-94) L 02/06/18 04:58 MCH 25 pg (28-32) L 02/06/18 04:58 MCHC 31 % (32-34) L 02/06/18 04:58 RDW 15.7 % (13.2-15.2) H 02/06/18 04:58 Plt Count 238 K/mm3 (140-440) 02/06/18 04:58 Lymph % (Auto) 5.4 % (13.4-35.0) L 02/06/18 04:58 [place] % (Auto) 8.0 % (0.0-7.3) H 02/06/18 04:58 Eos % (Auto) 3.0 % (0.0-4.3) 02/06/18 04:58 Baso % (Auto) 0.3 % (0.0-1.8) 02/06/18 04:58 Lymph # 0.5 K/mm3 (1.2-5.4) L 02/06/18 04:58 [place] # 0.8 K/mm3 (0.0-0.8) 02/06/18 04:58 Eos # 0.3 K/mm3 (0.0-0.4) 02/06/18 04:58 Baso # 0.0 K/mm3 (0.0-0.1) 02/06/18 04:58 Seg Neutrophils % 83.3 % (40.0-70.0) H 02/06/18 04:58 Seg Neutrophils # 8.1 K/mm3 (1.8-7.7) H 02/06/18 04:58 PT 13.9 Sec. (12.2-14.9) 02/05/18 14:41 INR 1.02 (0.87-1.13) 02/05/18 14:41 APTT 29.4 Sec. (24.2-36.6) 02/05/18 14:41 D-Dimer 883.26 ng/mlDDU (0-234) H 02/05/18 14:41 Sodium 142 mmol/L (137-145) 02/06/18 04:58 Potassium 4.2 mmol/L (3.6-5.0) 02/06/18 04:58 Chloride 96.9 mmol/L (98-107) L 02/06/18 04:58 Carbon Dioxide 36 mmol/L (22-30) H 02/06/18 04:58 Anion Gap 13 mmol/L 02/06/18 04:58 BUN 11 mg/dL (9-20) 02/06/18 04:58 Creatinine 0.9 mg/dL (0.8-1.5) 02/06/18 04:58 Estimated GFR > 60 ml/min 02/06/18 04:58 BUN/Creatinine Ratio 12 % 02/06/18 04:58 Glucose 98 mg/dL (75-100) 02/06/18 04:58 Hemoglobin A1c 6.0 % (4-6) 02/05/18 Unknown Calcium 8.8 mg/dL (8.4-10.2) 02/06/18 04:58 Total Bilirubin 0.60 mg/dL (0.1-1.2) 02/06/18 04:58 AST 23 units/L (5-40) 02/06/18 04:58 ALT 23 units/L (7-56) 02/06/18 04:58 Alkaline Phosphatase 108 units/L (35-129) 02/06/18 04:58 Troponin T < 0.010 ng/mL (0.00-0.029) 02/06/18 04:58 NT-Pro-B Natriuret Pep 1046 pg/mL (0-450) H 02/05/18 14:41 Total Protein 7.1 g/dL (6.3-8.2) 02/06/18 04:58 Albumin 3.3 g/dL (3.9-5) L 02/06/18 04:58 Albumin/Globulin Ratio 0.9 % 02/06/18 04:58 Lipase 26 units/L (13-60) 02/05/18 14:41 Urine Color Yellow (Yellow) 02/05/18 17:32 Urine Turbidity Clear (Clear) 02/05/18 17:32 Urine pH 6.0 (5.0-7.0) 02/05/18 17:32 Ur Specific [place] 1.011 (1.003-1.030) 02/05/18 17:32 Urine Protein <15 mg/dl mg/dL (Negative) 02/05/18 17:32 Urine Glucose (UA) Neg mg/dL (Negative) 02/05/18 17:32 Urine Ketones Neg mg/dL (Negative) 02/05/18 17:32 Urine Blood Neg (Negative) 02/05/18 17:32 Urine Nitrite Neg (Negative) 02/05/18 17:32 Urine Bilirubin Neg (Negative) 02/05/18 17:32 Urine Urobilinogen 2.0 mg/dL (<2.0) 02/05/18 17:32 Ur Leukocyte Esterase Neg (Negative) 02/05/18 17:32 Urine WBC (Auto) 1.0 /HPF (0.0-6.0) 02/05/18 17:32 Urine RBC (Auto) 2.0 /HPF (0.0-6.0) 02/05/18 17:32 Urine Mucus Few /HPF 02/05/18 17:32 Urine Opiates Screen Presumptive negative 02/05/18 17:32 Urine Methadone Screen Presumptive negative 02/05/18 17:32 Ur Barbiturates Screen Presumptive negative 02/05/18 17:32 Ur Phencyclidine Scrn Presumptive negative 02/05/18 17:32 Ur Amphetamines Screen Presumptive negative 02/05/18 17:32 U Benzodiazepines Scrn Presumptive negative 02/05/18 17:32 Urine Cocaine Screen Presumptive negative 02/05/18 17:32 U Marijuana (THC) Screen Presumptive negative 02/05/18 17:32 Drugs of Abuse Note Disclamer 02/05/18 17:32
[2018-02-07] MEDS: APRESOLINE PO SCH (18:10)
[2018-02-07] MEDS: TESSALON PERLES PO SCH ×2 (21:29→21:31)
[2018-02-08] MEDS: APRESOLINE PO SCH ×4 (00:32→21:49)
[2018-02-08] MEDS: COREG PO SCH ×3 (00:32→21:51)
[2018-02-08] MEDS: ROBITUSSIN AC PO PRN (02:20)
[2018-02-08] MEDS: LASIX IV SCH ×2 (06:01→18:26)
[2018-02-08] MEDS: TESSALON PERLES PO SCH ×3 (06:01→21:49)
[2018-02-08] MEDS: LOVENOX SUB-Q SCH (10:13)
[2018-02-08] MEDS: PEPCID PO SCH ×2 (10:13→21:49)
[2018-02-08] MEDS: COZAAR PO SCH (10:13)
[2018-02-08] MEDS: K-DUR PO SCH ×2 (10:18→21:49)
--- NOTE | 2018-02-08 10:19 | Progress Note ---
Assessment and Plan Assessment and plan: Acute diastolic CHF. Admitted to Telemetry. Continue Lasix, Coreg, Cozaar EF 50-55% on Echo Hypertensive urgency Monitor BP. BP now controlled on Hydralazine, Coreg and Cozaar Morbid obesity. I discussed diet and exercise to lose weight. Full code status History Interval history: No more chest pain Less shortness of breath Leg edema Hospitalist Physical - Physical exam Narrative exam: GEN:Not in acute distress, morbidly obese HEENT: Normocephalic, atraumatic, Neck: supple, No JVD Lungs: Bilateral basal crackles, no wheeze Heart:S1 and S2 reg, no murmurs, rubs or gallop Abd:soft, non-tender, non-distended, Normal bowel sounds Ext: Bilat lower ext edema, no clubbing or cyanosis Neuro:AAO x 3, No focal neurological signs - Constitutional Vitals: Temp Pulse Resp BP Pulse Ox 99.9 F H 99 H 22 133/84 91 02/08/18 08:04 02/08/18 08:04 02/08/18 08:04 02/08/18 08:04 02/08/18 08:04 General appearance: Present: no acute distress Results - Labs CBC & Chem 7: 02/06/18 04:58 02/09/18 09:31 Labs: Laboratory Last Values WBC 9.7 K/mm3 (4.5-11.0) 02/06/18 04:58 RBC 6.67 M/mm3 (3.65-5.03) H 02/06/18 04:58 Hgb 16.4 gm/dl (11.8-15.2) H 02/06/18 04:58 Hct 53.5 % (35.5-45.6) H 02/06/18 04:58 MCV 80 fl (84-94) L 02/06/18 04:58 MCH 25 pg (28-32) L 02/06/18 04:58 MCHC 31 % (32-34) L 02/06/18 04:58 RDW 15.7 % (13.2-15.2) H 02/06/18 04:58 Plt Count 238 K/mm3 (140-440) 02/06/18 04:58 Lymph % (Auto) 5.4 % (13.4-35.0) L 02/06/18 04:58 [place] % (Auto) 8.0 % (0.0-7.3) H 02/06/18 04:58 Eos % (Auto) 3.0 % (0.0-4.3) 02/06/18 04:58 Baso % (Auto) 0.3 % (0.0-1.8) 02/06/18 04:58 Lymph # 0.5 K/mm3 (1.2-5.4) L 02/06/18 04:58 [place] # 0.8 K/mm3 (0.0-0.8) 02/06/18 04:58 Eos # 0.3 K/mm3 (0.0-0.4) 02/06/18 04:58 Baso # 0.0 K/mm3 (0.0-0.1) 02/06/18 04:58 Seg Neutrophils % 83.3 % (40.0-70.0) H 02/06/18 04:58 Seg Neutrophils # 8.1 K/mm3 (1.8-7.7) H 02/06/18 04:58 PT 13.9 Sec. (12.2-14.9) 02/05/18 14:41 INR 1.02 (0.87-1.13) 02/05/18 14:41 APTT 29.4 Sec. (24.2-36.6) 02/05/18 14:41 D-Dimer 883.26 ng/mlDDU (0-234) H 02/05/18 14:41 Sodium 142 mmol/L (137-145) 02/06/18 04:58 Potassium 4.2 mmol/L (3.6-5.0) 02/06/18 04:58 Chloride 96.9 mmol/L (98-107) L 02/06/18 04:58 Carbon Dioxide 36 mmol/L (22-30) H 02/06/18 04:58 Anion Gap 13 mmol/L 02/06/18 04:58 BUN 11 mg/dL (9-20) 02/06/18 04:58 Creatinine 0.9 mg/dL (0.8-1.5) 02/06/18 04:58 Estimated GFR > 60 ml/min 02/06/18 04:58 BUN/Creatinine Ratio 12 % 02/06/18 04:58 Glucose 98 mg/dL (75-100) 02/06/18 04:58 Hemoglobin A1c 6.0 % (4-6) 02/05/18 Unknown Calcium 8.8 mg/dL (8.4-10.2) 02/06/18 04:58 Total Bilirubin 0.60 mg/dL (0.1-1.2) 02/06/18 04:58 AST 23 units/L (5-40) 02/06/18 04:58 ALT 23 units/L (7-56) 02/06/18 04:58 Alkaline Phosphatase 108 units/L (35-129) 02/06/18 04:58 Troponin T < 0.010 ng/mL (0.00-0.029) 02/06/18 04:58 NT-Pro-B Natriuret Pep 1046 pg/mL (0-450) H 02/05/18 14:41 Total Protein 7.1 g/dL (6.3-8.2) 02/06/18 04:58 Albumin 3.3 g/dL (3.9-5) L 02/06/18 04:58 Albumin/Globulin Ratio 0.9 % 02/06/18 04:58 Lipase 26 units/L (13-60) 02/05/18 14:41 Urine Color Yellow (Yellow) 02/05/18 17:32 Urine Turbidity Clear (Clear) 02/05/18 17:32 Urine pH 6.0 (5.0-7.0) 02/05/18 17:32 Ur Specific [place] 1.011 (1.003-1.030) 02/05/18 17:32 Urine Protein <15 mg/dl mg/dL (Negative) 02/05/18 17:32 Urine Glucose (UA) Neg mg/dL (Negative) 02/05/18 17:32 Urine Ketones Neg mg/dL (Negative) 02/05/18 17:32 Urine Blood Neg (Negative) 02/05/18 17:32 Urine Nitrite Neg (Negative) 02/05/18 17:32 Urine Bilirubin Neg (Negative) 02/05/18 17:32 Urine Urobilinogen 2.0 mg/dL (<2.0) 02/05/18 17:32 Ur Leukocyte Esterase Neg (Negative) 02/05/18 17:32 Urine WBC (Auto) 1.0 /HPF (0.0-6.0) 02/05/18 17:32 Urine RBC (Auto) 2.0 /HPF (0.0-6.0) 02/05/18 17:32 Urine Mucus Few /HPF 02/05/18 17:32 Urine Opiates Screen Presumptive negative 02/05/18 17:32 Urine Methadone Screen Presumptive negative 02/05/18 17:32 Ur Barbiturates Screen Presumptive negative 02/05/18 17:32 Ur Phencyclidine Scrn Presumptive negative 02/05/18 17:32 Ur Amphetamines Screen Presumptive negative 02/05/18 17:32 U Benzodiazepines Scrn Presumptive negative 02/05/18 17:32 Urine Cocaine Screen Presumptive negative 02/05/18 17:32 U Marijuana (THC) Screen Presumptive negative 02/05/18 17:32 Drugs of Abuse Note Disclamer 02/05/18 17:32
[2018-02-08] MEDS: SODIUM CHLORIDE FLUSH SYRINGE 10 ML IV SCH ×2 (10:21→21:50)
--- NOTE | 2018-02-08 15:14 | Progress Note ---
Assessment and Plan Patient appears to be improving slowly. Still has difficulty in breathing but some better. No chest pain. Continue current management. - Patient Problems (1) CHF (congestive heart failure) Current Visit: Yes Status: Acute Qualifiers: Heart failure type: unspecified Heart failure chronicity: unspecified Qualified Code(s): I50.9 - Heart failure, unspecified (2) Obesities, morbid Current Visit: Yes Status: Chronic (3) Hypertensive CHF Current Visit: Yes Status: Acute Qualifiers: Heart failure type: unspecified Qualified Code(s): I11.0 - Hypertensive heart disease with heart failure (4) Acute exacerbation of CHF (congestive heart failure) Current Visit: Yes Status: Acute Qualifiers: Heart failure type: combined systolic and diastolic Qualified Code(s): I50.43 - Acute on chronic combined systolic (congestive) and diastolic ( congestive) heart failure (5) HTN (hypertension) Current Visit: Yes Status: Chronic Qualifiers: Hypertension type: essential hypertension Qualified Code(s): I10 - Essential (primary) hypertension Subjective Date of service: 02/08/18 Principal diagnosis: HF Interval history: Patient is still complaining about difficulty in breathing but no significant chest pain. He is diuresing reasonably well. Objective Vital Signs Temp Pulse Pulse Resp Resp BP BP 02/08/18 13:00 02/08/18 12:10 97.7 F 90 22 123/68 02/08/18 11:01 68 02/08/18 10:00 68 22 02/08/18 08:04 99.9 F H 99 H 22 133/84 02/08/18 05:17 98.5 F 103 H 18 134/88 02/08/18 01:00 75 26 H 02/08/18 00:29 81 02/07/18 23:55 98.2 F 81 18 131/65 02/07/18 19:33 98.3 F 83 18 102/60 02/07/18 18:14 97.9 F 74 20 129/66 02/07/18 18:10 160/72 02/07/18 17:04 77 129/66 Pulse Ox 02/08/18 13:00 92 02/08/18 12:10 89 02/08/18 11:01 02/08/18 10:00 95 02/08/18 08:04 91 02/08/18 05:17 73 L 02/08/18 01:00 94 02/08/18 00:29 02/07/18 23:55 89 02/07/18 19:33 91 02/07/18 18:14 95 02/07/18 18:10 02/07/18 17:04 84 - Physical Examination General: No Apparent Distress, Other (morbid obesity) HEENT: Positive: EOMI, Normocephaly, Mucus Membranes Moist Neck: Positive: neck supple, trachea midline, JVD/HJR Cardiac: Positive: Regular Rate Lungs: Positive: Decreased Breath Sounds (breath sounds are reduced in the bases more so in the left base few scattered rales are present.) Neuro: Positive: Grossly Intact Abdomen: Positive: Soft, Active Bowel Sounds. Negative: Tender Skin: Positive: Clear. Negative: Rash Musculoskeletal: Normal Range of Motion Extremities: Present: edema (nonpitting bilateral leg edema.), +1 Edema - Imaging and Cardiology EKG: image reviewed Echo: report reviewed - EKG Sinus rhythms and dysrhythmias: sinus rhythm AV and intraventricular conduction: right bundle branch block
[2018-02-09] MEDS: APRESOLINE PO SCH ×3 (06:04→21:13)
[2018-02-09] MEDS: TESSALON PERLES PO SCH ×3 (06:05→21:12)
[2018-02-09] MEDS: LASIX IV SCH ×2 (06:05→17:34)
[2018-02-09 07:24] LABS: BUN/Creatinine Ratio 8; Blood Urea Nitrogen 10 mg/dL (9-20); Calcium 8.9 mg/dL (8.4-10.2); Hemolysis Index 238
[2018-02-09] MEDS: PEPCID PO SCH ×2 (09:44→21:15)
[2018-02-09] MEDS: LOVENOX SUB-Q SCH (09:44)
[2018-02-09] MEDS: SODIUM CHLORIDE FLUSH SYRINGE 10 ML IV SCH ×2 (09:45→21:15)
[2018-02-09] MEDS: K-DUR PO SCH ×2 (09:58→21:14)
[2018-02-09 10:40] LABS: BUN/Creatinine Ratio 9; Blood Urea Nitrogen 10 mg/dL (9-20); Hemolysis Index 17
[2018-02-09] MEDS: COZAAR PO SCH (11:09)
[2018-02-09] MEDS: COREG PO SCH ×2 (11:09→21:14)
--- NOTE | 2018-02-09 13:56 | Progress Note ---
Assessment and Plan Patient appears to be improving slowly. Still has difficulty in breathing but some better. No chest pain. Discussed with Dr. Nassar. Continue current management. - Patient Problems (1) CHF (congestive heart failure) Current Visit: Yes Status: Acute Qualifiers: Heart failure type: unspecified Heart failure chronicity: unspecified Qualified Code(s): I50.9 - Heart failure, unspecified (2) Obesities, morbid Current Visit: Yes Status: Chronic (3) Hypertensive CHF Current Visit: Yes Status: Acute Qualifiers: Heart failure type: unspecified Qualified Code(s): I11.0 - Hypertensive heart disease with heart failure (4) Acute exacerbation of CHF (congestive heart failure) Current Visit: Yes Status: Acute Qualifiers: Heart failure type: combined systolic and diastolic Qualified Code(s): I50.43 - Acute on chronic combined systolic (congestive) and diastolic ( congestive) heart failure (5) HTN (hypertension) Current Visit: Yes Status: Chronic Qualifiers: Hypertension type: essential hypertension Qualified Code(s): I10 - Essential (primary) hypertension Subjective Date of service: 02/09/18 Principal diagnosis: HF Interval history: Patient is comfortable today. Dyspnea is improving slowly. No significant chest pain. Objective Vital Signs Temp Pulse Pulse Pulse Pulse Pulse Pulse 02/09/18 11:09 88 02/09/18 11:00 88 02/09/18 10:00 88 88 88 88 88 02/09/18 08:47 98.7 F 86 02/09/18 05:41 98.3 F 84 02/09/18 03:00 80 02/09/18 00:55 98 F 84 02/08/18 23:46 86 02/08/18 23:36 91 H 02/08/18 22:00 02/08/18 20:36 98.9 F 84 02/08/18 19:55 84 02/08/18 16:22 99.9 F H 82 Resp BP BP Pulse Ox 02/09/18 11:09 105/56 02/09/18 11:00 02/09/18 10:00 22 100 02/09/18 08:47 20 128/82 97 02/09/18 05:41 18 122/65 92 02/09/18 03:00 02/09/18 00:55 20 115/68 92 02/08/18 23:46 27 H 95 02/08/18 23:36 115/82 94 02/08/18 22:00 18 02/08/18 20:36 18 143/79 94 02/08/18 19:55 143/79 87 02/08/18 16:22 20 137/75 93 - Physical Examination General: No Apparent Distress, Other (morbid obesity) HEENT: Positive: EOMI, Normocephaly, Mucus Membranes Moist Neck: Positive: neck supple, trachea midline, JVD/HJR Lungs: Positive: Decreased Breath Sounds (in both bases along with few basilar rales.) Neuro: Positive: Grossly Intact Abdomen: Positive: Soft, Active Bowel Sounds. Negative: Tender Skin: Positive: Clear. Negative: Rash Musculoskeletal: Normal Range of Motion Extremities: Present: edema (nonpitting bilateral leg edema.), +1 Edema - Labs and Meds Comprehensive Metabolic Panel 02/09/18 02/09/18 Range/Units 05:16 09:31 Sodium 138 142 (137-145) mmol/L Potassium TNR 4.7 Chloride 93.9 L 95.0 L (98-107) mmol/L Carbon Dioxide 37 H 36 H (22-30) mmol/L BUN 10 10 (9-20) mg/dL Creatinine 1.2 1.1 (0.8-1.5) mg/dL Glucose 94 109 H (75-100) mg/dL Calcium 8.9 9.0 (8.4-10.2) mg/dL - Imaging and Cardiology EKG: image reviewed Echo: report reviewed - EKG Sinus rhythms and dysrhythmias: sinus rhythm AV and intraventricular conduction: right bundle branch block
--- NOTE | 2018-02-10 03:46 | Progress Note ---
Assessment and Plan Assessment and plan: Acute diastolic CHF. Admitted to Telemetry. Continue Lasix, Coreg, Cozaar EF 50-55% on Echo Hypertensive urgency Monitor BP. BP now controlled on Hydralazine, Coreg and Cozaar Morbid obesity. I discussed diet and exercise to lose weight. Full code status Hopefully dc home in 1-2 days History Interval history: No more chest pain Less shortness of breath Leg edema Hospitalist Physical - Physical exam Narrative exam: GEN:Not in acute distress, morbidly obese HEENT: Normocephalic, atraumatic, Neck: supple, No JVD Lungs: Bilateral basal crackles, no wheeze Heart:S1 and S2 reg, no murmurs, rubs or gallop Abd:soft, non-tender, non-distended, Normal bowel sounds Ext: Bilat lower ext edema, no clubbing or cyanosis Neuro:AAO x 3, No focal neurological signs - Constitutional Vitals: Temp Pulse Resp BP Pulse Ox 98.4 F 82 20 128/65 98 02/10/18 00:00 02/10/18 00:00 02/10/18 00:00 02/10/18 00:00 02/10/18 00:00 General appearance: Present: no acute distress Results - Labs CBC & Chem 7: 02/06/18 04:58 02/09/18 09:31 Labs: Laboratory Last Values WBC 9.7 K/mm3 (4.5-11.0) 02/06/18 04:58 RBC 6.67 M/mm3 (3.65-5.03) H 02/06/18 04:58 Hgb 16.4 gm/dl (11.8-15.2) H 02/06/18 04:58 Hct 53.5 % (35.5-45.6) H 02/06/18 04:58 MCV 80 fl (84-94) L 02/06/18 04:58 MCH 25 pg (28-32) L 02/06/18 04:58 MCHC 31 % (32-34) L 02/06/18 04:58 RDW 15.7 % (13.2-15.2) H 02/06/18 04:58 Plt Count 238 K/mm3 (140-440) 02/06/18 04:58 Lymph % (Auto) 5.4 % (13.4-35.0) L 02/06/18 04:58 [place] % (Auto) 8.0 % (0.0-7.3) H 02/06/18 04:58 Eos % (Auto) 3.0 % (0.0-4.3) 02/06/18 04:58 Baso % (Auto) 0.3 % (0.0-1.8) 02/06/18 04:58 Lymph # 0.5 K/mm3 (1.2-5.4) L 02/06/18 04:58 [place] # 0.8 K/mm3 (0.0-0.8) 02/06/18 04:58 Eos # 0.3 K/mm3 (0.0-0.4) 02/06/18 04:58 Baso # 0.0 K/mm3 (0.0-0.1) 02/06/18 04:58 Seg Neutrophils % 83.3 % (40.0-70.0) H 02/06/18 04:58 Seg Neutrophils # 8.1 K/mm3 (1.8-7.7) H 02/06/18 04:58 PT 13.9 Sec. (12.2-14.9) 02/05/18 14:41 INR 1.02 (0.87-1.13) 02/05/18 14:41 APTT 29.4 Sec. (24.2-36.6) 02/05/18 14:41 D-Dimer 883.26 ng/mlDDU (0-234) H 02/05/18 14:41 Sodium 142 mmol/L (137-145) 02/09/18 09:31 Potassium 4.7 mmol/L (3.6-5.0) 02/09/18 09:31 Chloride 95.0 mmol/L (98-107) L 02/09/18 09:31 Carbon Dioxide 36 mmol/L (22-30) H 02/09/18 09:31 Anion Gap 16 mmol/L 02/09/18 09:31 BUN 10 mg/dL (9-20) 02/09/18 09:31 Creatinine 1.1 mg/dL (0.8-1.5) 02/09/18 09:31 Estimated GFR > 60 ml/min 02/09/18 09:31 BUN/Creatinine Ratio 9 % 02/09/18 09:31 Glucose 109 mg/dL (75-100) H 02/09/18 09:31 POC Glucose 114 (70-105) H 02/08/18 12:08 Hemoglobin A1c 6.0 % (4-6) 02/05/18 Unknown Calcium 9.0 mg/dL (8.4-10.2) 02/09/18 09:31 Total Bilirubin 0.60 mg/dL (0.1-1.2) 02/06/18 04:58 AST 23 units/L (5-40) 02/06/18 04:58 ALT 23 units/L (7-56) 02/06/18 04:58 Alkaline Phosphatase 108 units/L (35-129) 02/06/18 04:58 Troponin T < 0.010 ng/mL (0.00-0.029) 02/06/18 04:58 NT-Pro-B Natriuret Pep 1046 pg/mL (0-450) H 02/05/18 14:41 Total Protein 7.1 g/dL (6.3-8.2) 02/06/18 04:58 Albumin 3.3 g/dL (3.9-5) L 02/06/18 04:58 Albumin/Globulin Ratio 0.9 % 02/06/18 04:58 Lipase 26 units/L (13-60) 02/05/18 14:41 Urine Color Yellow (Yellow) 02/05/18 17:32 Urine Turbidity Clear (Clear) 02/05/18 17:32 Urine pH 6.0 (5.0-7.0) 02/05/18 17:32 Ur Specific [place] 1.011 (1.003-1.030) 02/05/18 17:32 Urine Protein <15 mg/dl mg/dL (Negative) 02/05/18 17:32 Urine Glucose (UA) Neg mg/dL (Negative) 02/05/18 17:32 Urine Ketones Neg mg/dL (Negative) 02/05/18 17:32 Urine Blood Neg (Negative) 02/05/18 17:32 Urine Nitrite Neg (Negative) 02/05/18 17:32 Urine Bilirubin Neg (Negative) 02/05/18 17:32 Urine Urobilinogen 2.0 mg/dL (<2.0) 02/05/18 17:32 Ur Leukocyte Esterase Neg (Negative) 02/05/18 17:32 Urine WBC (Auto) 1.0 /HPF (0.0-6.0) 02/05/18 17:32 Urine RBC (Auto) 2.0 /HPF (0.0-6.0) 02/05/18 17:32 Urine Mucus Few /HPF 02/05/18 17:32 Urine Opiates Screen Presumptive negative 02/05/18 17:32 Urine Methadone Screen Presumptive negative 02/05/18 17:32 Ur Barbiturates Screen Presumptive negative 02/05/18 17:32 Ur Phencyclidine Scrn Presumptive negative 02/05/18 17:32 Ur Amphetamines Screen Presumptive negative 02/05/18 17:32 U Benzodiazepines Scrn Presumptive negative 02/05/18 17:32 Urine Cocaine Screen Presumptive negative 02/05/18 17:32 U Marijuana (THC) Screen Presumptive negative 02/05/18 17:32 Drugs of Abuse Note Disclamer 02/05/18 17:32
[2018-02-10] MEDS: APRESOLINE PO SCH ×3 (05:43→22:00)
[2018-02-10] MEDS: TESSALON PERLES PO SCH ×2 (05:43→14:35)
[2018-02-10] MEDS: LASIX IV SCH ×2 (05:44→17:52)
[2018-02-10] MEDS: PEPCID PO SCH ×2 (09:53→22:00)
[2018-02-10] MEDS: COREG PO SCH ×2 (09:53→21:59)
[2018-02-10] MEDS: COZAAR PO SCH (09:54)
[2018-02-10] MEDS: LOVENOX SUB-Q SCH (09:55)
[2018-02-10] MEDS: SODIUM CHLORIDE FLUSH SYRINGE 10 ML IV SCH ×2 (09:58→22:02)
--- NOTE | 2018-02-10 12:26 | Progress Note ---
Assessment and Plan Patient is doing better. Dyspnea is improving. Continue current management. - Patient Problems (1) CHF (congestive heart failure) Current Visit: Yes Status: Acute Qualifiers: Heart failure type: unspecified Heart failure chronicity: unspecified Qualified Code(s): I50.9 - Heart failure, unspecified (2) Obesities, morbid Current Visit: Yes Status: Chronic (3) Hypertensive CHF Current Visit: Yes Status: Acute Qualifiers: Heart failure type: unspecified Qualified Code(s): I11.0 - Hypertensive heart disease with heart failure (4) Acute exacerbation of CHF (congestive heart failure) Current Visit: Yes Status: Acute Qualifiers: Heart failure type: combined systolic and diastolic Qualified Code(s): I50.43 - Acute on chronic combined systolic (congestive) and diastolic ( congestive) heart failure (5) HTN (hypertension) Current Visit: Yes Status: Chronic Qualifiers: Hypertension type: essential hypertension Qualified Code(s): I10 - Essential (primary) hypertension Subjective Date of service: 02/10/18 Principal diagnosis: HF Interval history: Patient is comfortable today. Dyspnea is improving slowly. No significant chest pain. Objective Vital Signs Temp Pulse Pulse Pulse Pulse Pulse Pulse 02/10/18 12:04 98.0 F 74 02/10/18 10:00 86 86 86 86 86 02/10/18 09:54 86 02/10/18 09:53 86 02/10/18 07:59 80 02/10/18 05:43 86 02/10/18 05:00 86 02/10/18 04:47 98.3 F 86 02/10/18 00:00 98.4 F 82 02/09/18 23:31 88 02/09/18 22:00 02/09/18 21:14 90 02/09/18 21:13 90 02/09/18 21:00 87 02/09/18 19:34 98.5 F 81 02/09/18 16:44 98.4 F 84 02/09/18 14:07 80 02/09/18 13:52 98.1 F Resp BP BP Pulse Ox 02/10/18 12:04 20 147/109 95 02/10/18 10:00 23 98 02/10/18 09:54 170/83 02/10/18 09:53 170/83 02/10/18 07:59 170/100 91 02/10/18 05:43 124/81 02/10/18 05:00 02/10/18 04:47 22 124/81 86 02/10/18 00:00 20 128/65 98 02/09/18 23:31 28 H 94 02/09/18 22:00 94 02/09/18 21:14 133/64 02/09/18 21:13 133/64 02/09/18 21:00 02/09/18 19:34 20 133/64 97 02/09/18 16:44 22 135/72 97 02/09/18 14:07 118/75 02/09/18 13:52 20 133/81 - Physical Examination General: No Apparent Distress, Other (morbid obesity) HEENT: Positive: EOMI, Normocephaly, Mucus Membranes Moist Neck: Positive: neck supple, trachea midline, JVD/HJR Cardiac: Positive: Regular Rhythm Lungs: Positive: clear to auscultation Neuro: Positive: Grossly Intact Abdomen: Positive: Soft, Active Bowel Sounds. Negative: Tender Skin: Positive: Clear. Negative: Rash Musculoskeletal: Normal Range of Motion Extremities: Present: edema (nonpitting bilateral leg edema.), +1 Edema - Imaging and Cardiology EKG: image reviewed Echo: report reviewed - EKG Sinus rhythms and dysrhythmias: sinus rhythm AV and intraventricular conduction: right bundle branch block
--- NOTE | 2018-02-10 17:46 | Progress Note ---
Assessment and Plan Assessment and plan: Acute diastolic CHF. Admitted to Telemetry. Continue Lasix, Coreg, Cozaar EF 50-55% on Echo Acute respiratory failure. On supplemental Oxygen O2 sats on room air on 83% on ambulation today Will repeat Chest X ray, get ABG,consult Pulm He will need home Oxygen at dc Hypertensive urgency Monitor BP. BP now controlled on Hydralazine, Coreg and Cozaar Morbid obesity. I discussed diet and exercise to lose weight. Elevated d-dimer. Patient cannot fit in CT machine. Doppler US legs negative Full code status Hopefully dc home in 1-2 days History Interval history: No more chest pain Still shortness of breath Less Leg edema Hospitalist Physical - Physical exam Narrative exam: GEN:Not in acute distress, morbidly obese HEENT: Normocephalic, atraumatic, Neck: supple, No JVD Lungs: Bilateral basal crackles,decreased breath sounds, no wheeze Heart:S1 and S2 reg, no murmurs, rubs or gallop Abd:soft, non-tender, non-distended, Normal bowel sounds Ext: Bilat lower ext edema, no clubbing or cyanosis Neuro:AAO x 3, No focal neurological signs - Constitutional Vitals: Temp Pulse Resp BP Pulse Ox 98.5 F 87 20 134/64 89 02/10/18 15:46 02/10/18 15:46 02/10/18 15:46 02/10/18 15:46 02/10/18 15:46 General appearance: Present: no acute distress Results - Labs CBC & Chem 7: 02/06/18 04:58 02/09/18 09:31 Labs: Laboratory Last Values WBC 9.7 K/mm3 (4.5-11.0) 02/06/18 04:58 RBC 6.67 M/mm3 (3.65-5.03) H 02/06/18 04:58 Hgb 16.4 gm/dl (11.8-15.2) H 02/06/18 04:58 Hct 53.5 % (35.5-45.6) H 02/06/18 04:58 MCV 80 fl (84-94) L 02/06/18 04:58 MCH 25 pg (28-32) L 02/06/18 04:58 MCHC 31 % (32-34) L 02/06/18 04:58 RDW 15.7 % (13.2-15.2) H 02/06/18 04:58 Plt Count 238 K/mm3 (140-440) 02/06/18 04:58 Lymph % (Auto) 5.4 % (13.4-35.0) L 02/06/18 04:58 [place] % (Auto) 8.0 % (0.0-7.3) H 02/06/18 04:58 Eos % (Auto) 3.0 % (0.0-4.3) 02/06/18 04:58 Baso % (Auto) 0.3 % (0.0-1.8) 02/06/18 04:58 Lymph # 0.5 K/mm3 (1.2-5.4) L 02/06/18 04:58 [place] # 0.8 K/mm3 (0.0-0.8) 02/06/18 04:58 Eos # 0.3 K/mm3 (0.0-0.4) 02/06/18 04:58 Baso # 0.0 K/mm3 (0.0-0.1) 02/06/18 04:58 Seg Neutrophils % 83.3 % (40.0-70.0) H 02/06/18 04:58 Seg Neutrophils # 8.1 K/mm3 (1.8-7.7) H 02/06/18 04:58 PT 13.9 Sec. (12.2-14.9) 02/05/18 14:41 INR 1.02 (0.87-1.13) 02/05/18 14:41 APTT 29.4 Sec. (24.2-36.6) 02/05/18 14:41 D-Dimer 883.26 ng/mlDDU (0-234) H 02/05/18 14:41 Sodium 142 mmol/L (137-145) 02/09/18 09:31 Potassium 4.7 mmol/L (3.6-5.0) 02/09/18 09:31 Chloride 95.0 mmol/L (98-107) L 02/09/18 09:31 Carbon Dioxide 36 mmol/L (22-30) H 02/09/18 09:31 Anion Gap 16 mmol/L 02/09/18 09:31 BUN 10 mg/dL (9-20) 02/09/18 09:31 Creatinine 1.1 mg/dL (0.8-1.5) 02/09/18 09:31 Estimated GFR > 60 ml/min 02/09/18 09:31 BUN/Creatinine Ratio 9 % 02/09/18 09:31 Glucose 109 mg/dL (75-100) H 02/09/18 09:31 POC Glucose 114 (70-105) H 02/08/18 12:08 Hemoglobin A1c 6.0 % (4-6) 02/05/18 Unknown Calcium 9.0 mg/dL (8.4-10.2) 02/09/18 09:31 Total Bilirubin 0.60 mg/dL (0.1-1.2) 02/06/18 04:58 AST 23 units/L (5-40) 02/06/18 04:58 ALT 23 units/L (7-56) 02/06/18 04:58 Alkaline Phosphatase 108 units/L (35-129) 02/06/18 04:58 Troponin T < 0.010 ng/mL (0.00-0.029) 02/06/18 04:58 NT-Pro-B Natriuret Pep 1046 pg/mL (0-450) H 02/05/18 14:41 Total Protein 7.1 g/dL (6.3-8.2) 02/06/18 04:58 Albumin 3.3 g/dL (3.9-5) L 02/06/18 04:58 Albumin/Globulin Ratio 0.9 % 02/06/18 04:58 Lipase 26 units/L (13-60) 02/05/18 14:41 Urine Color Yellow (Yellow) 02/05/18 17:32 Urine Turbidity Clear (Clear) 02/05/18 17:32 Urine pH 6.0 (5.0-7.0) 02/05/18 17:32 Ur Specific [place] 1.011 (1.003-1.030) 02/05/18 17:32 Urine Protein <15 mg/dl mg/dL (Negative) 02/05/18 17:32 Urine Glucose (UA) Neg mg/dL (Negative) 02/05/18 17:32 Urine Ketones Neg mg/dL (Negative) 02/05/18 17:32 Urine Blood Neg (Negative) 02/05/18 17:32 Urine Nitrite Neg (Negative) 02/05/18 17:32 Urine Bilirubin Neg (Negative) 02/05/18 17:32 Urine Urobilinogen 2.0 mg/dL (<2.0) 02/05/18 17:32 Ur Leukocyte Esterase Neg (Negative) 02/05/18 17:32 Urine WBC (Auto) 1.0 /HPF (0.0-6.0) 02/05/18 17:32 Urine RBC (Auto) 2.0 /HPF (0.0-6.0) 02/05/18 17:32 Urine Mucus Few /HPF 02/05/18 17:32 Urine Opiates Screen Presumptive negative 02/05/18 17:32 Urine Methadone Screen Presumptive negative 02/05/18 17:32 Ur Barbiturates Screen Presumptive negative 02/05/18 17:32 Ur Phencyclidine Scrn Presumptive negative 02/05/18 17:32 Ur Amphetamines Screen Presumptive negative 02/05/18 17:32 U Benzodiazepines Scrn Presumptive negative 02/05/18 17:32 Urine Cocaine Screen Presumptive negative 02/05/18 17:32 U Marijuana (THC) Screen Presumptive negative 02/05/18 17:32 Drugs of Abuse Note Disclamer 02/05/18 17:32
--- NOTE | 2018-02-10 19:58 | XRay Report ---
FINAL REPORT EXAM: XR CHEST ROUTINE 2V HISTORY: chf TECHNIQUE: Two view chest PA and lateral PRIORS: Comparison is February 05, 2018 FINDINGS: Cardiac and mediastinal contours are unremarkable. No focal pulmonary infiltrate is identified. No pleural fluid collection seen. Pulmonary vasculature is unremarkable. IMPRESSION: Negative two-view chest
[2018-02-11] MEDS: APRESOLINE PO SCH ×3 (06:01→22:25)
[2018-02-11] MEDS: LASIX IV SCH (06:01)
[2018-02-11] MEDS: LOVENOX SUB-Q SCH (10:21)
[2018-02-11] MEDS: COZAAR PO SCH (10:21)
[2018-02-11] MEDS: COREG PO SCH ×2 (10:21→22:26)
[2018-02-11] MEDS: PEPCID PO SCH ×2 (10:21→22:25)
[2018-02-11] MEDS: SODIUM CHLORIDE FLUSH SYRINGE 10 ML IV SCH ×2 (10:22→22:26)
--- NOTE | 2018-02-11 14:02 | Progress Note ---
Assessment and Plan Currently stable cardiac status. Pt appears to be nearing/at euvolemia. Convert IV lasix to PO lasix 40mg daily. Pt may discharge home from cardiology standpoint. Follow up in our [place] office with JUMANA Palma (Dr. Kelsie kinney) on @ 1:30PM. The patient has been seen in conjunction with Dr. JUMANA Palma who agrees with the assessment and plan of care. - Patient Problems (1) (HFpEF) heart failure with preserved ejection fraction Current Visit: Yes Status: Acute (2) Hypertensive emergency Current Visit: Yes Status: Resolved (3) Morbid obesity Current Visit: Yes Status: Chronic (4) Suspected sleep apnea Current Visit: Yes Status: Chronic Subjective Date of service: 02/11/18 Principal diagnosis: HF Interval history: pt resting in bed, no current complaints. Objective Last Vital Signs Temp 98.1 F 02/11/18 11:29 Pulse 73 02/11/18 11:29 Resp 20 02/11/18 11:29 BP 143/68 02/11/18 11:29 Pulse Ox 81 L 02/11/18 11:29 - Physical Examination General: No Apparent Distress, Other (morbid obesity) HEENT: Positive: EOMI, Normocephaly, Mucus Membranes Moist Neck: Positive: neck supple, trachea midline, JVD/HJR Cardiac: Positive: Reg Rate and Rhythm, S1/S2 Lungs: Positive: Decreased Breath Sounds Neuro: Positive: Grossly Intact Abdomen: Positive: Soft, Active Bowel Sounds. Negative: Tender Skin: Positive: Clear. Negative: Rash Musculoskeletal: Normal Range of Motion Extremities: Present: edema (nonpitting trace bilateral leg edema) - Imaging and Cardiology EKG: image reviewed Echo: report reviewed - EKG Sinus rhythms and dysrhythmias: sinus rhythm AV and intraventricular conduction: right bundle branch block
--- NOTE | 2018-02-11 17:35 | Consultation ---
History of Present Illness Consult date: 02/11/18 Requesting physician: SAY LIZAMA Reason for consult: hypoxemia Past History Past Medical History: hypertension Past Surgical History: No surgical history Social history: denies: smoking, alcohol abuse Family history: denies: no significant family history Medications and Allergies Allergies Allergy/AdvReac Type Severity Reaction Status Date / Time No Known Allergies Allergy Verified 02/05/18 12:34 Home Medications Medication Instructions Recorded Confirmed Last Taken Type Lisinopril/Hydrochlorothiazide 1 tab PO QDAY #30 tab 01/06/18 02/05/18 02/05/18 Rx [Zestoretic 20-12.5 mg] Metoprolol [Lopressor TAB] 25 mg PO BID #60 tablet 01/06/18 02/05/18 02/05/18 Rx Active Meds: Active Medications Acetaminophen (Tylenol) 650 mg PO Q4H PRN PRN Reason: Pain MILD(1-3)/Fever >100.5/GARCIA Acetaminophen/Hydrocodone Bitart ([place] 5/325) 2 each PO Q6H PRN PRN Reason: Pain, Moderate (4-6) Carvedilol (Coreg) 25 mg PO BID [facility] Last Admin: 02/11/18 10:21 Dose: 25 mg Enoxaparin Sodium (Lovenox) 40 mg SUB-Q QDAY [facility] Last Admin: 02/11/18 10:21 Dose: 40 mg Famotidine (Pepcid) 20 mg PO BID [facility] Last Admin: 02/11/18 10:21 Dose: 20 mg Furosemide (Lasix) 40 mg PO QDAY [facility] Hydralazine HCl (Apresoline) 5 mg IV Q6HR PRN PRN Reason: Hypertension Hydralazine HCl (Apresoline) 50 mg PO Q8HR [facility] Last Admin: 02/11/18 13:49 Dose: 50 mg Losartan Potassium (Cozaar) 100 mg PO QDAY [facility] Last Admin: 02/11/18 10:21 Dose: 100 mg Morphine Sulfate (Morphine) 4 mg IV Q4H PRN PRN Reason: Pain, Moderate (4-6) Ondansetron HCl (Zofran) 4 mg IV Q8H PRN PRN Reason: Nausea And Vomiting Pseudoephedrine/Acetam/Chlorphenir (Robitussin Ac) 10 ml PO Q12H PRN PRN Reason: Cough Last Admin: 02/08/18 02:20 Dose: 10 ml Sodium Chloride (Sodium Chloride Flush Syringe 10 Ml) 10 ml IV BID [facility] Last Admin: 02/11/18 10:22 Dose: 10 ml Sodium Chloride (Sodium Chloride Flush Syringe 10 Ml) 10 ml IV PRN PRN PRN Reason: LINE FLUSH Physical Examination Vital signs: Vital Signs Pulse Resp BP Pulse Ox 82 15 212/129 91 02/05/18 12:30 02/05/18 12:30 02/05/18 12:30 02/05/18 12:30 Results - Laboratory Findings CBC and BMP: 02/06/18 04:58 02/09/18 09:31 ABG POC ABG pH 7.421 (7.35-7.45) 02/10/18 18:57 POC ABG pCO2 72.5 (35-45) H 02/10/18 18:57 POC ABG pO2 50 (80-105) L 02/10/18 18:57 POC ABG HCO3 47.1 02/10/18 18:57 POC ABG Total CO2 49 02/10/18 18:57 POC ABG O2 Sat 83 02/10/18 18:57 PT/INR, D-dimer PT 13.9 Sec. (12.2-14.9) 02/05/18 14:41 INR 1.02 (0.87-1.13) 02/05/18 14:41 D-Dimer 883.26 ng/mlDDU (0-234) H 02/05/18 14:41 Abnormal lab findings: Abnormal Labs 02/05/18 02/05/18 02/05/18 14:41 14:41 14:41 RBC 6.45 H Hgb 16.1 H Hct 51.9 H MCV 80 L MCH 25 L MCHC 31 L RDW 15.9 H Lymph % (Auto) 7.4 L [place] % (Auto) 10.2 H Eos % (Auto) 6.2 H Lymph # 0.7 L [place] # 0.9 H Eos # 0.6 H Seg Neutrophils % 75.7 H Seg Neutrophils # D-Dimer 883.26 H POC ABG pCO2 POC ABG pO2 Chloride 97.6 L Carbon Dioxide 37 H Glucose POC Glucose NT-Pro-B Natriuret Pep Albumin 3.5 L 08/02/06/18 02/06/18 14:41 04:58 04:58 RBC 6.67 H Hgb 16.4 H Hct 53.5 H MCV 80 L MCH 25 L MCHC 31 L RDW 15.7 H Lymph % (Auto) 5.4 L [place] % (Auto) 8.0 H Eos % (Auto) Lymph # 0.5 L [place] # Eos # Seg Neutrophils % 83.3 H Seg Neutrophils # 8.1 H D-Dimer POC ABG pCO2 POC ABG pO2 Chloride 96.9 L Carbon Dioxide 36 H Glucose POC Glucose NT-Pro-B Natriuret Pep 1046 H Albumin 3.3 L 02/08/18 02/09/18 02/09/18 12:08 05:16 09:31 RBC Hgb Hct MCV MCH MCHC RDW Lymph % (Auto) [place] % (Auto) Eos % (Auto) Lymph # [place] # Eos # Seg Neutrophils % Seg Neutrophils # D-Dimer POC ABG pCO2 POC ABG pO2 Chloride 93.9 L 95.0 L Carbon Dioxide 37 H 36 H Glucose 109 H POC Glucose 114 H NT-Pro-B Natriuret Pep Albumin 02/10/18 18:57 RBC Hgb Hct MCV MCH MCHC RDW Lymph % (Auto) [place] % (Auto) Eos % (Auto) Lymph # [place] # Eos # Seg Neutrophils % Seg Neutrophils # D-Dimer POC ABG pCO2 72.5 H POC ABG pO2 50 L Chloride Carbon Dioxide Glucose POC Glucose NT-Pro-B Natriuret Pep Albumin
--- NOTE | 2018-02-11 17:46 | Progress Note ---
Assessment and Plan /Acute diastolic CHF. Admitted to Telemetry. Continue Lasix, Coreg, Cozaar EF 50-55% on Echo /Acute respiratory failure, due to likely obesity hypoventilation syndrom On supplemental Oxygen O2 sats on room air on 83% on ambulation He will need home Oxygen at dc need sleep study outpt, negative LE venous doppler /Hypertensive urgency Monitor BP. BP now controlled on Hydralazine, Coreg and Cozaar /Morbid obesity. discussed diet and exercise to lose weight with patient and sister. /Elevated d-dimer. Patient cannot fit in CT machine. Doppler US legs negative Full code status Hopefully dc home when outpt O2 available Hospitalist Physical GEN:Not in acute distress, morbidly obese HEENT: Normocephalic, atraumatic, Neck: supple, No JVD Lungs: Bilateral basal crackles,decreased breath sounds, no wheeze Heart:S1 and S2 reg, no murmurs, rubs or gallop Abd:soft, non-tender, non-distended, Normal bowel sounds Ext: Bilat lower ext edema, no clubbing or cyanosis Neuro:AAO x 3, No focal neurological signs Subjective Date of service: 02/11/18 Principal diagnosis: HF Interval history: Patient seen and examined will need home o2 on discharge discussed with Sister by phone Discussed with Pulmonary Objective - Constitutional Vitals: Vital Signs - 12hr 02/11/18 02/11/18 02/11/18 08:16 09:22 10:00 Temperature 98.1 F Pulse Rate Pulse Rate [ 84 Left Radial] Respiratory 20 22 Rate Blood Pressure 150/78 O2 Sat by Pulse 95 Oximetry 02/11/18 02/11/18 11:29 16:36 Temperature 98.1 F 99.2 F Pulse Rate 73 75 Pulse Rate [ Left Radial] Respiratory 20 20 Rate Blood Pressure 143/68 126/72 O2 Sat by Pulse 81 L 91 Oximetry - Labs CBC & Chem 7: 02/06/18 04:58 02/09/18 09:31 Labs: Abnormal lab results 02/10/18 Range/Units 18:57 POC ABG pCO2 72.5 H (35-45) POC ABG pO2 50 L (80-105)
[2018-02-12] MEDS: APRESOLINE PO SCH ×3 (05:34→22:33)
[2018-02-12] MEDS ORDERED: LASIX PO SCH (10:00)
[2018-02-12] MEDS: COZAAR PO SCH (13:02)
[2018-02-12] MEDS: LOVENOX SUB-Q SCH (13:02)
[2018-02-12] MEDS: PEPCID PO SCH ×2 (13:03→22:34)
[2018-02-12] MEDS: SODIUM CHLORIDE FLUSH SYRINGE 10 ML IV SCH ×2 (13:05→22:35)
[2018-02-12] MEDS: COREG PO SCH ×3 (13:05→22:34)
--- NOTE | 2018-02-12 15:00 | Progress Note ---
Subjective Date of service: 02/12/18 Principal diagnosis: HF Objective Vital Signs - 12hr 02/12/18 02/12/18 02/12/18 04:15 04:23 04:24 Temperature 97.9 F Pulse Rate 75 80 68 Respiratory 17 20 Rate Blood Pressure 121/73 Blood Pressure 121/73 [Right] O2 Sat by Pulse 97 97 97 Oximetry 02/12/18 02/12/18 02/12/18 04:40 05:34 06:14 Temperature 98.3 F Pulse Rate 97 H 80 Respiratory 20 Rate Blood Pressure 121/73 Blood Pressure 191/114 [Right] O2 Sat by Pulse 97 97 Oximetry 02/12/18 02/12/18 02/12/18 07:38 08:41 09:26 Temperature 97.9 F 97.9 F Pulse Rate 71 69 85 Respiratory 20 20 24 Rate Blood Pressure 145/87 Blood Pressure 145/69 [Right] O2 Sat by Pulse 97 97 94 Oximetry 02/12/18 02/12/18 02/12/18 09:31 10:00 11:17 Temperature 98.0 F Pulse Rate 73 69 Respiratory 20 Rate Blood Pressure 172/91 Blood Pressure [Right] O2 Sat by Pulse 94 94 97 Oximetry CBC and BMP: 02/06/18 04:58 02/09/18 09:31 ABG, PT/INR, D-dimer: ABG POC ABG pH 7.372 (7.35-7.45) 02/12/18 09:19 POC ABG pCO2 75.8 (35-45) H 02/12/18 09:19 POC ABG pO2 58 (80-105) L 02/12/18 09:19 POC ABG HCO3 44.1 02/12/18 09:19 POC ABG Total CO2 46 02/12/18 09:19 POC ABG O2 Sat 87 02/12/18 09:19 PT/INR, D-dimer PT 13.9 Sec. (12.2-14.9) 02/05/18 14:41 INR 1.02 (0.87-1.13) 02/05/18 14:41 D-Dimer 883.26 ng/mlDDU (0-234) H 02/05/18 14:41 Abnormal lab findings: Abnormal Labs 02/05/18 02/05/18 02/05/18 14:41 14:41 14:41 RBC 6.45 H Hgb 16.1 H Hct 51.9 H MCV 80 L MCH 25 L MCHC 31 L RDW 15.9 H Lymph % (Auto) 7.[address] [place] % (Auto) 10.2 H Eos % (Auto) 6.2 H Lymph # 0.[address] [place] # 0.9 H Eos # 0.6 H Seg Neutrophils % 75.7 H Seg Neutrophils # D-Dimer 883.26 H POC ABG pCO2 POC ABG pO2 Chloride 97.6 L Carbon Dioxide 37 H Glucose POC Glucose NT-Pro-B Natriuret Pep Albumin 3.5 L 02/05/18 02/06/18 02/06/18 14:41 04:58 04:58 RBC 6.67 H Hgb 16.4 H Hct 53.5 H MCV 80 L MCH 25 L MCHC 31 L RDW 15.7 H Lymph % (Auto) 5.[address] [facility] % (Auto) 8.0 H Eos % (Auto) Lymph # 0.[address] [facility] [place] # Eos # Seg Neutrophils % 83.3 H Seg Neutrophils # 8.1 H D-Dimer POC ABG pCO2 POC ABG pO2 Chloride 96.9 L Carbon Dioxide 36 H Glucose POC Glucose NT-Pro-B Natriuret Pep 1046 H Albumin 3.3 L 02/08/18 02/09/18 02/09/18 12:08 05:16 09:31 RBC Hgb Hct MCV MCH MCHC RDW Lymph % (Auto) [place] % (Auto) Eos % (Auto) Lymph # [facility] # Eos # Seg Neutrophils % Seg Neutrophils # D-Dimer POC ABG pCO2 POC ABG pO2 Chloride 93.9 L 95.0 L Carbon Dioxide 37 H 36 H Glucose 109 H POC Glucose 114 H NT-Pro-B Natriuret Pep Albumin 02/10/18 02/12/18 18:57 09:19 RBC Hgb Hct MCV MCH MCHC RDW Lymph % (Auto) [facility] % (Auto) Eos % (Auto) Lymph # [facility] # Eos # Seg Neutrophils % Seg Neutrophils # D-Dimer POC ABG pCO2 72.5 H 75.8 H POC ABG pO2 50 L 58 L Chloride Carbon Dioxide Glucose POC Glucose NT-Pro-B Natriuret Pep Albumin
--- NOTE | 2018-02-12 15:58 | Discharge Summary ---
Providers - Providers Date of Admission: 02/05/18 20:42 Date of discharge: 02/13/18 Attending physician: YANA RUDOLPH 02/05/18 Consult to Case Management [CONS] Routine Services Needed at Discharge: Home Health Services Notified:: rehabilitation case coordinator 02/05/18 20:41 Consult to Physician [CONS] Routine Comment: Consulting Provider: BIRGIT LAWRENCE Physician Instructions: Reason For Exam: CHF exacerbation 02/05/18 21:16 Consult to Physician [CONS] Routine Comment: Consulting Provider: BIRGIT LAWRENCE Physician Instructions: Reason For Exam: chf exacerbation 02/10/18 17:44 Consult to Physician [CONS] Routine Comment: Consulting Provider: GEMINI WATKINS Physician Instructions: Reason For Exam: Shortness of breath, elevated d-dimer 02/11/18 20:16 Consult to Case Management [CONS] Routine Services Needed at Discharge: Home O2 Notified:: case management Additional Physician Instructions: Needs home oxygen therapy at 3l/min continuous Primary care physician: ESCROW MANAGER Hospitalization Condition: Fair Hospital course: /Acute diastolic CHF. Admitted to Telemetry. Continue Lasix, Coreg, Cozaar EF 50-55% on Echo /Acute respiratory failure, due to likely obesity hypoventilation syndrom On supplemental Oxygen O2 sats on room air on 83% on ambulation He will need home Oxygen at dc need sleep study outpt, negative LE venous doppler /Hypertensive urgency Monitor BP. BP now controlled on Hydralazine, Coreg and Cozaar /Morbid obesity. discussed diet and exercise to lose weight with patient and sister. /Elevated d-dimer. Patient cannot fit in CT machine. Doppler US legs negative Full code status Hopefully dc home when outpt O2 available Hospitalist Physical GEN:Not in acute distress, morbidly obese HEENT: Normocephalic, atraumatic, Neck: supple, No JVD Lungs: Bilateral basal crackles,decreased breath sounds, no wheeze Heart:S1 and S2 reg, no murmurs, rubs or gallop Abd:soft, non-tender, non-distended, Normal bowel sounds Ext: Bilat lower ext edema, no clubbing or cyanosis Neuro:AAO x 3, No focal neurological signs Disposition: DC-01 TO HOME OR SELFCARE Time spent for discharge: 34 minutes Core Measure Documentation - Palliative Care Palliative Care/ Comfort Measures: Not Applicable - Core Measures Any of the following diagnoses?: none Exam - Constitutional Vitals: Temp Pulse Resp BP Pulse Ox 98.0 F 69 20 172/91 97 02/12/18 11:17 02/12/18 11:17 02/12/18 11:17 02/12/18 11:17 02/12/18 11:17 Plan Activity: advance as tolerated Weight Bearing Status: Weight Bear as Tolerated Diet: low fat, low salt Special Instructions: restrict fluid intake to (1.5 L/day), home oxygen via (n/c ) Follow up with: TRANG DUMONT MD [Staff Physician] - 7 Days (Follow up in our [place] office with JUMANA Dumont on 02/14/2018 @ 1:30PM ) PRIMARY CAREMD [Primary Care Provider] - 3-5 Days Prescriptions: ALBUTEROL Inhaler (OR & NICU) [Proair] 2 puff IH QID PRN #1 inhalation PRN Reason: Shortness Of Breath Carvedilol [Coreg] 25 mg PO BID #60 tablet Furosemide [Lasix TAB] 40 mg PO QDAY #30 tablet hydrALAZINE [Apresoline TAB] 50 mg PO Q8HR #90 tablet Losartan [Cozaar] 100 mg PO QDAY #30 tablet
[2018-02-13 04:56] VITALS: BP 122/71
[2018-02-13] MEDS: APRESOLINE PO SCH (05:51)
--- NOTE | 2018-02-13 14:15 | Progress Note ---
Assessment and Plan /Acute diastolic CHF. Admitted to Telemetry. Continue Lasix, Coreg, Cozaar EF 50-55% on Echo /Acute respiratory failure, due to likely obesity hypoventilation syndrom On supplemental Oxygen O2 sats on room air on 83% on ambulation He will need home Oxygen at dc need sleep study outpt, negative LE venous doppler /Hypertensive urgency Monitor BP. BP now controlled on Hydralazine, Coreg and Cozaar /Morbid obesity. discussed diet and exercise to lose weight with patient and sister. /Elevated d-dimer. Patient cannot fit in CT machine. Doppler US legs negative Full code status Hopefully dc home when outpt O2 available Hospitalist Physical GEN:Not in acute distress, morbidly obese HEENT: Normocephalic, atraumatic, Neck: supple, No JVD Lungs: Bilateral basal crackles,decreased breath sounds, no wheeze Heart:S1 and S2 reg, no murmurs, rubs or gallop Abd:soft, non-tender, non-distended, Normal bowel sounds Ext: Bilat lower ext edema, no clubbing or cyanosis Neuro:AAO x 3, No focal neurological signs Subjective Date of service: 02/12/18 Principal diagnosis: HF Interval history: Patient seen and examined will need home o2 on discharge discussed with Sister by phone Discussed with Pulmonary Objective - Constitutional Vitals: Vital Signs - 12hr 02/13/18 02/13/18 02/13/18 04:02 04:56 05:51 Temperature 97.9 F Pulse Rate 84 84 Respiratory 18 Rate Blood Pressure 122/71 122/71 O2 Sat by Pulse 91 Oximetry - Labs CBC & Chem 7: 02/06/18 04:58 02/09/18 09:31
== END 2018-02-13 10:00 | disposition home or self-care (01) | DRG 291 ==
LOC: ED 12:14 → 4A 20:42
PROVIDERS: ADMIT Internal Medicine; ATTEND Internal Medicine
PROC: 5A09357 Assistance with Respiratory Ventilation, Less than 24 Consecutive Hours, Continuous Positive Airway Pressure (ICD-10-PCS; 2018-02-07)
PROC: 5A09357 Assistance with Respiratory Ventilation, Less than 24 Consecutive Hours, Continuous Positive Airway Pressure (ICD-10-PCS; 2018-02-08)
PROC: 5A09357 Assistance with Respiratory Ventilation, Less than 24 Consecutive Hours, Continuous Positive Airway Pressure (ICD-10-PCS; 2018-02-09)
PROC: 4A033R1 Measurement of Arterial Saturation, Peripheral, Percutaneous Approach (ICD-10-PCS; principal; 2018-02-10)
PROC: 5A09357 Assistance with Respiratory Ventilation, Less than 24 Consecutive Hours, Continuous Positive Airway Pressure (ICD-10-PCS; 2018-02-11)
PROC: 5A09357 Assistance with Respiratory Ventilation, Less than 24 Consecutive Hours, Continuous Positive Airway Pressure (ICD-10-PCS; 2018-02-12)
DX: I11.0 Hypertensive heart disease with heart failure (principal); J96.00 Acute respiratory failure, unspecified whether with hypoxia or hypercapnia; I16.9 Hypertensive crisis, unspecified; Z68.44 Body mass index [BMI] 60.0-69.9, adult; L03.116 Cellulitis of left lower limb; L03.115 Cellulitis of right lower limb; I16.1 Hypertensive emergency; E66.2 Morbid (severe) obesity with alveolar hypoventilation; I50.43 Acute on chronic combined systolic (congestive) and diastolic (congestive) heart failure; Z79.899 Other long term (current) drug therapy
CPT/HCPCS: 36415; 36600; 71045; 71046; 80048; 80053; 80307; 81001; 82803; 82962; 83036; 83690; 83880; 84484; 85025; 85379; 85610; 85730; 87040; 93005; 93010; 93306; 93970; 94660; 94760; 96365; 96366; 96367; 96372; 96375; J0360; J1650; J1940; J2543; J3370; J7040